=== PATIENT | female | born 1955 | race Caucasian/White ===

== ENCOUNTER → 2018-03-21 09:10 | Outpatient (CLI) | payer BC, SELFPAY ==
[2018-03-21 10:40] LABS: Anion Gap 7 (5-15); BUN 17 mg/dL (7-18); BUN/Creat Ratio 24.7 RATIO (10-20); Calcium,Total 9.1 mg/dL (8.5-10.1); Chloride 108 mmol/L (98-107); Cholesterol 213 mg/dL (200); Creatinine, Serum 0.69 mg/dL (0.55-1.02); EST Glomerular Filtration Rate 91 mL/min (>60); Est Glom Filt Rate - Afr Amer 111 mL/min (>60); Glucose 88 mg/dL (74-106); High Density Lipoprotein 68 mg/dL; Potassium 4.2 mmol/L (3.5-5.1); Sodium Level 141 mmol/L (136-145); Triglycerides 93 mg/dL; Very Low Density Lipoprotein 19 mg/dL (5-40)
[2018-03-22 08:24] LABS: Vitamin D,25 Hydroxy 21.5 ng/mL (29.95-100.01)
== END ==
PROVIDERS: Family Provider Family Medicine; PCP Family Medicine; Visit Provider Family Medicine
DX: Z00.00 Encounter for general adult medical examination without abnormal findings (principal)
CPT/HCPCS: 36415; 80048; 80061; 82306

== ENCOUNTER → 2018-05-28 08:17 | Outpatient (CLI) | payer BC, SELFPAY ==
[2018-05-31 13:33] LABS: HPV Reflexed? NOT INDICATED
== END ==
PROVIDERS: Family Provider Internal Medicine; PCP Family Medicine; Visit Provider Nurse Practitioner Adult Health
DX: Z01.419 Encounter for gynecological examination (general) (routine) without abnormal findings (principal)
CPT/HCPCS: 88175; G0145

== ENCOUNTER → 2018-05-28 09:15 | Outpatient (CLI) | payer BC, SELFPAY | PROVIDERS: Family Provider Internal Medicine; PCP Internal Medicine; Visit Provider Family Medicine | DX: Z00.00 Encounter for general adult medical examination without abnormal findings (principal); Z12.31 Encounter for screening mammogram for malignant neoplasm of breast | CPT/HCPCS: 77063; 77067; 77080 ==

== ENCOUNTER 2019-06-10 19:48 | Observation (INO) | payer BC, SELFPAY ==
[2019-06-10 19:48] VITALS: BP 158/87; PULSE 83; RESP 18; TEMP 36.5; O2SAT 96; BMI 37.5
--- NOTE | 2019-06-10 19:54 | ED.RN ---
CALLED FOR EKG PER RN REQUEST, PULLED OLD EKGS FOR
--- NOTE | 2019-06-10 20:19 | EKG12_ITS ---
Test Reason : CP Blood Pressure : / mmHG Vent. Rate : 074 BPM Atrial Rate : 074 BPM P-R Int : 174 ms QRS Dur : 088 ms QT Int : 418 ms P-R-T Axes : 048 -35 038 degrees QTc Int : 463 ms Normal sinus rhythm Left axis deviation Voltage criteria for left ventricular hypertrophy Abnormal ECG Confirmed by MARYCARMEN FRANCIS ([id number]), order editor VIVIANE GONSALES ([id number]) on 06/11/2019 1:36:22 PM Referred By: JOSE J Confirmed By:MARYCARMEN FRANCIS
--- NOTE | 2019-06-10 20:21 | ED.DCSUM_ITS ---
- ER Visit Summary Date of Service: 06/10/19 Chief Complaint: Near syncope History of Present Illness: The patient is a 63 F presenting after near syncopal episode. Patient states that she began to feel lightheaded and started sweating. She denied chest pain or chest pressure at the time. Denies shortnes s of breath. She states over the weekend she has been having intermittent episodes of chest pressure. She states she traveled to [place] last month. No other PE/DVT risk factors. She has a family history of her grandfather having AR age less than 65. She is not a smoker. Physical Examination: Vitals are stable. Patient is afebrile. Alert no acute distress. HEENT exam is unremarkable. Neck is supple. Lungs are clear and equal bilaterally. Heart is regular rate and rhythm. Abdomen is soft nontender nondistended. Extremities are unremarkable. Skin is warm and dry. No focal neurologic deficit. Remainder of exam is unremarkable. Emergency Department Course and Treatment: Patient was given aspirin on arrival. EKG is sinus rate of 74 with no acute ischemic changes. CBC, chemistries unremarkable. Troponin is negative. D-dimer negative. Chest x-ray shows no acute process. Patient remains pain-free in the emergency department. Discussed with the hospitalist for observation. Disposition: Observation Impression: Chest pain, near-syncope This note was generated with [employer] dictation software. It may contain incorrect words, spelling, and punctuation that were not noted in review of the chart prior to signing ED Disposition - Plan for ED Patient: Referrals: Burt Talavera MD [Primary Care Provider] -
--- NOTE | 2019-06-10 20:22 | RAD_ITS ---
STUDY: X-RAY CHEST REASON FOR EXAM: Female, 63 years old. Chest pain TECHNIQUE: Frontal view of the chest COMPARISON: None. FINDINGS: The lungs are clear. There are no pleural effusions. There is no pneumothorax. The heart is normal in size. The visualized osseous structures are within normal limits. RAD/Chest 1 View (Portable) IMPRESSION: No acute thoracic pathology. Electronically Signed: Matteo Bledsoe, at 20:43 EDT Tel , Service support ,
[2019-06-10] MEDS: Aspirin 81 MG TAB.CHEW 324 MG PO (20:24)
[2019-06-10 20:44] LABS: Anion Gap 6 (5-15); BUN 19 mg/dL (7-18); BUN/Creat Ratio 20.4 RATIO (10-20); Calcium,Total 9.3 mg/dL (8.5-10.1); Chloride 109 mmol/L (98-107); Creatinine, Serum 0.93 mg/dL (0.55-1.02); EST Glomerular Filtration Rate 64 mL/min (>60); Est Glom Filt Rate - Afr Amer 78 mL/min (>60); Estimated Creatinine Clearance 59.43 ml/min; Glucose 113 mg/dL (74-106); Potassium 3.7 mmol/L (3.5-5.1); Sodium Level 141 mmol/L (136-145)
[2019-06-10 21:06] LABS: Absolute Lymphocyte Count 2.75 X10^3/uL (0.83-4.51); Absolute Neutrophil Count 4.9 X10^3/uL (2.0-7.7); Basophil# 0.04 X10^3/uL; Basophil% 0.5 % (0-1); Eosinophil# 0.17 X10^3/uL; Hematocrit 38.5 % (37-47); Lymphocyte # 2.75 X10^3/ul (4.0); Lymphocyte % 32.5 % (19-41); Mean Corp Hgb Conc 33.8 g/dL (32-36); Mean Corpuscular Hgb 32.1 pg (27.0-32.0); Mean Corpuscular Volume 95.1 fL (81-99); Mean Platelet Vol. 10.5 fl (6.2-12.0); Monocyte# 0.64 X10^3/uL; Monocyte% 7.6 % (0-10); NRBC Flagged by Analyzer 0 % (0-5); Neutrophil # 4.86 X10^3/uL (2.7-7.7); Neutrophil % 57.3 % (47-70); Platelet Count 301 K/mm3 (150-450); RBC Distribution Width CV 13.5 % (11.6-14.6); RBC Distribution Width SD 47.1 fl (35.1-43.9); Red Blood Count 4.05 M/mm3 (4.2-5.4); White Blood Count 8.5 K/mm3 (4.4-11.0)
[2019-06-10 21:48] VITALS: BP 129/82; PULSE 70; RESP 16; O2SAT 95
[2019-06-10 23:00] VITALS: BP 125/94; PULSE 74; RESP 21; O2SAT 95
--- NOTE | 2019-06-10 23:18 | PCM.HP.STD ---
Problem List (1) Pre-syncope Status: Acute (2) Chest pain Status: Acute History of Present Illness Date of Admission: 06/10/19 Chief Complaint: NEAR SYNCOPE The patient is a 63 year old F who presented with a feeling of being about to pass out while sitting after eating at a restaurant. Patient had finished eating and was making plans to pay the bills. She felt nauseous while sitting. She felt lightheaded and his legs were weak. She was diaphoretic and she felt like passing out. She did not actually pass out. Also she reports that about 3 to 5 days ago she had chest pain. She described this chest pain as pressure. The chest pain was substernal and nonradiating. She has chest pain ongoing for many years. This chest pain is episodic. She does not think that her chest pain that re-occurred few days ago was different from her previous episodes of chest pain. She reported that she was evaluated more than 10 years ago with a stress test. She reports that she was told that the stress test showed that she has stress in her chest. She reported that her PCP, Dr. Talavera, noted that her blood pressure was elevated and her blood pressure is being watched. Family history includes only a paternal grandfather who had heart disease and had a heart attack at age 65. Past Medical History Medical History: Medical History (Last Updated 06/11/19 @ 00:06 by Donell Tena MD) Elevated blood pressure reading without diagnosis of hypertension R03.0 Allergies aspirin Adverse Reaction (Verified 06/10/19 19:50) Other SHAKES STILL TAKES IT IF NEEDED Home Medications: Ambulatory Orders Medication Instructions Recorded NK 06/10/19 Surgical History: cholecystectomy, - - Trigger finger surgery Lives: Alone Smoking Status: Never smoker Alcohol: Rare - *Family History Maternal History Items: Cancer - Breast cancer in multiple family members Paternal History Items: Cancer - Her father had prostate cancer. Also his paternal grandmother had cancer., Heart Disease - Her paternal grandfather had heart disease; and had a heart attack at age 65. Review of Systems Constitutional: Denies: Chills, Fever, Weight Change HEENT: Denies: Head Aches, Sinus Congestion, Sinus Drainage Cardiovascular: Reports: Chest Pressure. Denies: Palpitations Respiratory: Denies: Cough, Shortness of breath at rest, Sputum production Gastrointestinal: Reports: Nausea. Denies: Abdominal Pain, Vomiting Genitourinary: Denies: Dysuria Musculoskeletal: Denies: Joint Pain, Joint Tenderness Skin: Denies: Rash, Wounds Neurological: Denies: Numbness, Tingling, Focal weakness Psychiatric: Denies: Anxiety, Depression, Homicidal Ideations, Suicidal Ideations Hematologic/ Lymphatic: Denies: Easy Bruising, Easy Bleeding VTE Information - Inpt Only VTE Present on Admission: No VTE Mechan Device Prophylaxis: SCD's VTE Pharm Prophylaxis ordered?: No Patient Problems: Active and Suspected Problems (Last Updated 06/11/19 @ 00:06 by Donell Tena MD) Pre-syncope (Acute) Chest pain (Acute) - Physical Exam General: Alert, Oriented x3, Cooperative HEENT: Atraumatic, PERRLA, EOMI, Normocephalic Neck: Supple, No JVD, Negative Carotid Bruits Lungs: Clear to auscultation, Normal air movement Cardiovascular: Regular rate, No murmurs Abdomen: Bowel Sounds Present, Soft, Non Tender Extremities: No edema, Capillary Refill Less than 3 Seconds Skin: No rashes, No breakdown Musculoskeletal: No Tenderness to Palpation of Joints or Extremities Neurological: Cranial nerves II-XII grossly intact Psych/Mental Status: Normal Affect, Appropriate Vital Signs Temp Pulse Resp BP Pulse Ox 97.7 F L 74 21 H 125/94 H 95 06/10/19 19:48 06/10/19 23:00 06/10/19 23:00 06/10/19 23:00 06/10/19 23:00 Oxygen Flow Rate (L/min) 2 Oxygen Delivery Method Room Air Weight: 108.8 kg Body Mass Index (BMI) 37.5 Laboratory Tests Past 24 Hrs 06/10/19 06/10/19 06/10/19 20:00 20:00 20:00 WBC 8.5 RBC 4.05 L Hgb 13.0 Hct 38.5 MCV 95.1 MCH 32.1 H MCHC 33.8 RDW Std Deviation 47.1 H RDW Coeff of Misha 13.5 Plt Count 301 MPV 10.5 Immature Gran % (Auto) 0.100 Neut % (Auto) 57.3 Lymph % (Auto) 32.5 [place] % (Auto) 7.6 Eos % (Auto) 2.0 Baso % (Auto) 0.5 Absolute Neuts (auto) 4.9 Absolute Lymphs (auto) 2.75 Nucleated RBC % 0 D-Dimer Quant (PE/DVT) 0.30 Sodium 141 Potassium 3.7 Chloride 109 H Carbon Dioxide 26.0 Anion Gap 6 BUN 19 H Creatinine 0.93 Estim Creat Clear Calc 59.43 Est GFR (MDRD) Af Amer 78 Est GFR (MDRD) Non-Af 64 BUN/Creatinine Ratio 20.4 H Glucose 113 H Calcium 9.3 Troponin I < 0.015 Assessment/Plan All Active Problems (Last Updated 06/11/19 @ 00:06 by Donell Tena MD) Pre-syncope (Acute) Chest pain (Acute) The patient is a 63 year old F with a presyncopal episode and episodic chest pain ongoing for many years. Presyncopal episode Likely vasovagal. However, can not rule out cardiac origin of chest pain. We will get an echocardiogram. Orthostatic vitals ordered. EKG showed left axis deviation and sinus rhythm. Placed on telemetric monitoring. Chest pain Admit to a monitored bed on PCU CXR independently reviewed confirms no acute cardiopulmonary process. EKG independently reviewed confirms sinus rhythm with left axis deviation. Unchanged from previous. Aspirin 324 mg in the emergency department. Although patient has allergy to aspirin she takes aspirin if needed. Reportedly she shakes' with aspirin. ASA 81 mg p.o. daily SL NTG 0.4 mg prn as needed for chest pain We will check lipid panel. Serial cardiac enzymes Stat EKG as needed for chest pain Chemical Stress test in the AM if the cardiac enzymes are negative Echocardiogram ordered Elevated blood pressure without diagnosis of hypertension PRN hydralazine for systolic pressure more than 160 or diastolic pressure more than 120 Trend blood pressures. DVT prophylaxis SCD ordered for now. No chemical thromboprophylaxis because patient will be having stress test in a.m. If patient ends up staying for more than one day consider chemical thromboprophylaxis. Code Visit OBSV E&M: 26944 Initial observation care L3
[2019-06-11] VITALS (12 sets, daily range): BP systolic 105–156; BP diastolic 65–97; PULSE 51–73; RESP 16–18; TEMP 36.5–36.6; O2SAT 97–100; BMI 37.0; BMI 37.1
--- NOTE | 2019-06-11 00:13 | ECHOD_ITS ---
Reason For Study: Pre-syncope Procedure This was a 2D Doppler, Color Flow transthoracic echocardiogram. Exam performed in department. Left Ventricle Moderately dilated left ventricle. The estimated ejection fraction is 35-40 %. Stage 1 diastolic dysfunction. Mid-Anterior : Severely Hypokinetic. Mid-anteroseptal : Severely Hypokinetic. Anterior Rosser : Mildly hypokinetic. Right Ventricle Normal size and thickness. Normal systolic function. Atria Normal left atrium. Normal right atrium. Normal atrial septum. Mitral Valve The mitral valve is structurally normal. No prolapse or stenosis seen. Tricuspid Valve Normal tricuspid valve. Trivial tricuspid valve insufficiency. Unable to estimate RV systolic pressure/pulmonary artery pressure due to technically difficult study. Aortic Valve Trisinus/trileaflet aortic valve. Normal aortic valve. Pulmonic Valve Normal pulmonic valve. Great Vessels Normal aortic root. Normal arch. Normal inferior vena cava. Inferior vena cava collapse with sniff. Pericardium/Pleural No pericardial effusion. MMode/2D Measurements & Calculations LVIDd: 5.2 cm IVSd: 0.84 cm Ao root diam: 3.1 cm LVIDs: 4.4 cm LVPWd: 1.3 cm RVDd: 3.1 cm FS: 15.4 % LAV(MOD-bp): 51.6 ml EDV(MOD-sp4): 139.4 ml EDV(MOD-sp2): 105.6 ml LAV(MOD-bp) Indexed: 23.8 ml/m2 ESV(MOD-sp4): 73.8 ml EF(MOD-sp2): 50.1 % LAV(MOD-sp2): 42.3 ml EF(MOD-sp4): 47.1 % LAV(MOD-sp4): 64.9 ml SV(MOD-sp4): 65.6 ml SV(MOD-sp2): 52.9 ml LA A4 area: 20.0 cm2 LA dimension(2D): 4.3 cm RA A4 area: 15.6 cm2 Doppler Measurements & Calculations MV E max calos: 75.6 cm/sec Lat Peak E' Calos: 6.3 cm/sec Med Peak E' Calos: 6.7 cm/sec MV A max calos: 87.5 cm/sec E/E' lat: 12.1 E/E' med: 11.2 MV E/A: 0.86 Ao V2 max: 149.4 cm/sec LV V1 max: 118.8 cm/sec PA V2 max: 115.4 cm/sec Ao max P.9 mmHg LV V1 max P.6 mmHg Interpretation Summary Moderately dilated left ventricle. The estimated ejection fraction is 35-40 %. Stage 1 diastolic dysfunction. Mid-Anterior : Severely Hypokinetic. Mid-anteroseptal : Severely Hypokinetic. Anterior Rosser : Mildly hypokinetic Trivial tricuspid valve insufficiency. Unable to estimate RV systolic pressure/pulmonary artery pressure due to technically difficult study. There is no comparison study available. Ordering Physician: Donell Tena Referring Physician: Burt Talavera Performed By: Dixie Kenyon RDCS
--- NOTE | 2019-06-11 01:23 | EKG12_ITS ---
Test Reason : CP ADMISSION Blood Pressure : / mmHG Vent. Rate : 061 BPM Atrial Rate : 061 BPM P-R Int : 190 ms QRS Dur : 092 ms QT Int : 426 ms P-R-T Axes : 050 -33 -04 degrees QTc Int : 428 ms Normal sinus rhythm Left axis deviation ,LAHB Voltage criteria for left ventricular hypertrophy Abnormal ECG When compared with ECG of 10-JUN-2019 19:58, MANUAL COMPARISON REQUIRED, DATA IS UNCONFIRMED Confirmed by MARYCARMEN FRANCIS ([id number]), video effects editor VIVIANE GONSALES ([id number]) on 06/12/2019 2:05:49 PM Referred By: GRACE Confirmed By:MARYCARMEN FRANCIS
[2019-06-11 03:49] LABS: Cholesterol 195 mg/dL (200); High Density Lipoprotein 57 mg/dL; Triglycerides 100 mg/dL; Very Low Density Lipoprotein 20 mg/dL (5-40)
[2019-06-11] MEDS: Aspirin 81 MG TAB.CHEW PO (06:08)
[2019-06-11 08:55] LABS: Thyroid Stim Hormone (TSH) 3.49 uIU/mL (0.358-3.74)
--- NOTE | 2019-06-11 11:28 | DCINST_ITS ---
- Discharge Diagnoses Current Active Problems: Current Active and Chronic Problems (Last Updated 06/11/19 @ 00:06 by Donell Tena MD) Pre-syncope (Acute) Chest pain (Acute) You will use the following diet at home:: Regular Your food should be the consistency of: Regular Discharge Activity: Return to Normal Activity Weight Bearing Status: Full weight bearing Call your doctor if you observe: Fever of 101 or Higher, Shortness of breath, Dizziness, Fainting spells, Chest pain, Increased palpitations (irregular heartbeat), Uncontrolled pain Instructions: Taking Your Blood Pressure Additional Instructions: Please monitor your blood pressure in the next week, check it once or twice a day and record your heart rate as well and showed them to your primary doctor when you see him in a week. Allergies/Adverse Reactions: Allergies aspirin Adverse Reaction (Verified 06/10/19 19:50) Other SHAKES STILL TAKES IT IF NEEDED Medications to take at Discharge NK 06/10/19 Primary Care Physician: Burt Talavera MD [Primary Care Provider] - Please follow up with your Primary Care Physician in: 1 week. Test Results: Test results from this visit will be discussed in further detail at your follow- up appointment, if applicable.
--- NOTE | 2019-06-11 11:28 | CASEMGMT ---
As per the admitting RN, pt indicated has POA/LW forms and will bring them in. Pt indicated that Bong Short and Suzie Staples are her POAs. ANDREW Cruz
--- NOTE | 2019-06-11 12:32 | PCM.PROGNOTE ---
Patient Problems: Active and Suspected Problems (Last Updated 06/11/19 @ 00:06 by Donell Tena MD) Cardiomyopathy (Acute) Pre-syncope (Acute) Chest pain (Acute) Subjective: Chief complaint: Follow-up after admission for presyncope and reported chest pain. She was found to have low ejection fraction on 2D echocardiogram. Patient seen and examined. No acute events overnight. She denies any chest pain today. She denied dizziness or lightheadedness. She denied palpitation, syncope or presyncope. She denied nausea vomiting. She has been afebrile, heart rate has been bradycardic, blood pressure is slightly elevated, pulse ox is maintained on room air. - Physical Exam General: Alert, Oriented x3, Cooperative, No apparent distress HEENT: Atraumatic, PERRLA, EOMI, Normocephalic Oral: Moist Mucosa, No Gingival or Mucosal Lesions/ Ulcerations Neck: Supple, No JVD, Negative Carotid Bruits, Trachea Midline, Thyroid Normal Size and Texture Lungs: Clear to auscultation, Normal air movement, No rhonchi, No wheeze, No rales, Diminished Cardiovascular: Regular rate, Regular Rhythm, Normal S1, Normal S2, PMI Normal Abdomen: Bowel Sounds Present, Soft, Non Tender, Non-Distended, No Hepato-splenomegaly, Obese Extremities: No clubbing, No cyanosis, Edema - Trace nonpitting edema. Skin: No rashes, No breakdown Lymphatic: No Cervical, Supraclavicular, or Inguinal Adenopathy Neurological: Cranial nerves II-XII grossly intact, Motor Exam 5/5 strength throughout Psych/Mental Status: Normal Affect, Appropriate, Alert and oriented to time, place, person, mood and affect Vital Signs Temp Pulse Resp BP Pulse Ox 97.7 F L 62 18 151/84 H 98 06/11/19 06:00 06/11/19 09:21 06/11/19 06:00 06/11/19 06:00 06/11/19 06:00 Oxygen Flow Rate (L/min) 2 Oxygen Delivery Method Room Air Weight: 236 lb 15.951 oz Body Mass Index (BMI) 37.0 Orthostatic Vital Signs Start: 06/11/19 06:01 Freq: q24h Status: Active Protocol: Activity Type Activity Date Activity User E-Sign Co-Sign Detail Recorded Client Recorded Date Recorded By Document 06/11/19 06:00 BS [id number] 06/11/19 06:06 BS 06/11/19 06:00 Orthostatic Vitals Standing -Blood Pressure (90/60-120/80) 155/97 H -Extremity Use Right Arm -Pulse Rate (60-100) 69 Sitting -Blood Pressure (90/60-120/80) 155/89 H -Extremity Use Right Arm -Pulse Rate (60-100) 64 Lying -Blood Pressure (90/60-120/80) 151/84 H -Extremity Use Right Arm -Pulse Rate (60-100) 59 L Intake and Output for Last 24 Hours 06/09/19 06/10/19 06/11/19 23:59 23:59 23:59 Intake Total 400 / 400 Balance 400 / 400 Laboratory Tests Past 24 Hrs 06/10/19 06/10/19 06/10/19 20:00 20:00 20:00 WBC 8.5 RBC 4.05 L Hgb 13.0 Hct 38.5 MCV 95.1 MCH 32.1 H MCHC 33.8 RDW Std Deviation 47.1 H RDW Coeff of Misha 13.5 Plt Count 301 MPV 10.5 Immature Gran % (Auto) 0.100 Neut % (Auto) 57.3 Lymph % (Auto) 32.5 [place] % (Auto) 7.6 Eos % (Auto) 2.0 Baso % (Auto) 0.5 Absolute Neuts (auto) 4.9 Absolute Lymphs (auto) 2.75 Nucleated RBC % 0 D-Dimer Quant (PE/DVT) 0.30 Sodium 141 Potassium 3.7 Chloride 109 H Carbon Dioxide 26.0 Anion Gap 6 BUN 19 H Creatinine 0.93 Estim Creat Clear Calc 59.43 Est GFR (MDRD) Af Amer 78 Est GFR (MDRD) Non-Af 64 BUN/Creatinine Ratio 20.4 H Glucose 113 H Calcium 9.3 Troponin I < 0.015 Triglycerides Cholesterol LDL Cholesterol VLDL Cholesterol HDL Cholesterol TSH 06/11/19 06/11/19 06/11/19 00:25 03:11 03:11 WBC RBC Hgb Hct MCV MCH MCHC RDW Std Deviation RDW Coeff of Misha Plt Count MPV Immature Gran % (Auto) Neut % (Auto) Lymph % (Auto) [place] % (Auto) Eos % (Auto) Baso % (Auto) Absolute Neuts (auto) Absolute Lymphs (auto) Nucleated RBC % D-Dimer Quant (PE/DVT) Sodium Potassium Chloride Carbon Dioxide Anion Gap BUN Creatinine Estim Creat Clear Calc Est GFR (MDRD) Af Amer Est GFR (MDRD) Non-Af BUN/Creatinine Ratio Glucose Calcium Troponin I < 0.015 < 0.015 Triglycerides Cancelled 100 Cholesterol Cancelled 195 LDL Cholesterol Cancelled 118 VLDL Cholesterol Cancelled 20 HDL Cholesterol Cancelled 57 TSH 06/11/19 03:11 WBC RBC Hgb Hct MCV MCH MCHC RDW Std Deviation RDW Coeff of Misha Plt Count MPV Immature Gran % (Auto) Neut % (Auto) Lymph % (Auto) [place] % (Auto) Eos % (Auto) Baso % (Auto) Absolute Neuts (auto) Absolute Lymphs (auto) Nucleated RBC % D-Dimer Quant (PE/DVT) Sodium Potassium Chloride Carbon Dioxide Anion Gap BUN Creatinine Estim Creat Clear Calc Est GFR (MDRD) Af Amer Est GFR (MDRD) Non-Af BUN/Creatinine Ratio Glucose Calcium Troponin I Triglycerides Cholesterol LDL Cholesterol VLDL Cholesterol HDL Cholesterol TSH 3.49 Clinical Impression(s) from Imaging Studies Chest X-Ray 06/10/19 20:22 IMPRESSION: No acute thoracic pathology. Electronically Signed: Matteo Bledsoe, at 20:43 EDT Tel , Service support , Medical Necessity - Tobacco Use Smoking Status: Never smoker Assessment/Plan All Active Problems (Last Updated 06/11/19 @ 00:06 by Donell Tena MD) Cardiomyopathy (Acute) Pre-syncope (Acute) Chest pain (Acute) This is a 63 years old female patient presented to the emergency room because of presyncope, reported chest pain and she was found to have low ejection fraction consistent with cardiomyopathy of unclear etiology. #1 presyncope: Unclear etiology but can be explained by her low ejection fraction as well as bradycardia. Her EKG revealed normal sinus rhythm without evidence of acute ischemic changes. Troponin negative x3. Chest x-ray showed no acute findings. Lipid profile and TSH were unremarkable. D-dimer was negative. Her blood pressure has been on the higher side and she has been borderline bradycardic. 2D echocardiogram revealed moderately dilated left ventricle, ejection fraction of 35 to 40%, stage I diastolic dysfunction. Nuclear stress test is pending. Plan: Cardiology consult. #2 reported chest pain: EKG without acute ischemic changes. Troponin is negative. 2D echocardiogram reviewed as above. Stress test is pending. Plan as above. #3 cardiomyopathy: Unclear etiology, could be ischemic. 2D echocardiogram revealed severely hypokinetic mid anterior wall, severely hypokinetic mid anteroseptal wall and mildly hypokinetic apex. Ejection fraction is 35 to 40%. Plan: Cardiology consult, start lisinopril and HCTZ. She is borderline bradycardic and she might not tolerate beta-blockers. #4 elevated blood pressure: Patient has been in the range of 150s. Patient mentioned that over the last year, her blood pressure has been borderline high. Plan to start lisinopril and HCTZ as above. #5 DVT prophylaxis: Subcu Lovenox. This note was generated with [employer] dictation software. It may contain incorrect words, spelling, and punctuation that were not noted in checking the note before signing. Code Visit Inpatient E&M: [id number] [facility] Hosp L3
--- NOTE | 2019-06-11 12:43 | STRESSREP_ITS ---
Stress Test Report Date: 06/11/2019 Procedure: Exercise tolerance test/imaging study Indications: Chest pain Consent: Per the patient Procedure: The patient exercised on a Myron protocol for 5 minutes and 31 seconds achieving a peak heart rate of 153 bpm (98% predicted maximal heart rate) with a peak blood pressure 204/88 mmHg and a peak MET capacity of 7 METs. The baseline ECG demonstrated normal sinus rhythm, poor R wave progression in the anterior leads. The peak exercise ECG demonstrated tachycardia with short runs of nonsustained V. tach. EKG during recovery revealed no significant ST changes. Patient had short (3-5 beat) runs of nonsustained V. tach during peak exercise. The functional capacity was considered low average for age. There was [no complaint of chest discomfort during exercise or recovery]. The examination was discontinued secondary to fatigue. Impression: 1. Technically adequate (percent predicted maximal heart rate greater than 85%) exercise tolerance test 2. Stress test is negative for exercise-induced EKG changes of ischemia. However, patient did have short runs of nonsustained V. tach during peak exercise 3. The test test is [negative] for exercise-induced chest pain 4. Functional capacity is below average for age 5. Nuclear images pending Myocardial perfusion imaging study: Technique: The patient was injected with 11.9 mCi of technetium 99m Cardiolite and subsequently rest SPECT Cardiolite nuclear imaging was obtained in the horizontal long, vertical long, and short axis views. The patient exercised on a Myron protocol. Please see above for details. The patient was injected with 34.1 mCi of technetium 99m Cardiolite and subsequently stress SPECT Cardiolite nuclear imaging was obtained in the horizontal long, vertical long, and short axis views. A gated Cardiolite study at peak stress was obtained. Interpretation: Rest and stress SPECT Cardiolite nuclear imaging status post realignment, normalization, and attenuation correction, demonstrates overall normal myocardial radioisotope uptake. The gated Cardiolite study demonstrates mild global hypokinesis. The reported LVEF is 47 %. Impression: 1. There is no evidence of significant ischemia or infarction. 2. The gated Cardiolite study reports an LVEF of [47]% with mild global hypokinesis. This note was generated with [employer] software. It may contain incorrect words, spelling, and punctuation that were not noted in checking the note before signing.
--- NOTE | 2019-06-11 13:06 | PCM.CONS.C ---
Problem List (1) Cardiomyopathy Status: Acute (2) Pre-syncope Status: Acute (3) Chest pain Status: Acute Reason for Consult Date of Consultation: 06/11/19 Reason for Consultation: Chest pressure, dizziness, presyncope, abnormal echocardiogram, abnormal stress test History of Present Illness: The patient is a 63 year old F, mildly obese, nondiabetic, with a history of hypertension, unknown cholesterol, no previous known coronary artery disease, catheterization, TIA or CVA. The patient was in normal health up until last evening when she went out to eat with her friend. At the conclusion of the meal the patient felt overly full, and as she was checking out she developed significant leg weakness, lightheadedness, and severe diaphoresis. Her symptoms abated after several minutes, drove herself home and felt better. She had no associated chest pain or chest pressure or shortness of breath. However, over the last several weeks the patient has had substernal chest pressure on and off at rest as well as significant dyspnea on exertion with inclines which is a new finding. After consultation with her family she was encouraged to come to the emergency room and be evaluated. Her EKG demonstrated sinus bradycardia with poor R wave progression across the precordium, no acute changes. Her initial troponin was negative. Chest x-ray was negative for pulmonary edema or pleural effusions. She underwent a 2D echo with Doppler which demonstrated moderate to severe anterior apical hypokinesis with an overall ejection fraction of around 85 to 40%. We were unable to quantitate her RVSP. In addition she underwent a ambulatory nuclear stress test today which she had a hypertensive blood pressure response to exercise, good chronotropic competence, no anginal symptoms, no overt ischemia noted however she did have several episodes of nonsustained ventricular tachycardia of 3-5 beats. Past Medical History Allergies/Adverse Reactions: Allergies aspirin Adverse Reaction (Verified 06/10/19 19:50) Other SHAKES STILL TAKES IT IF NEEDED Home Medications: Ambulatory Orders Medication Instructions Recorded NK 06/10/19 Surgical History: cholecystectomy, - - Trigger finger surgery - *Family History Maternal History Items: Cancer - Breast cancer in multiple family members Paternal History Items: Cancer - Her father had prostate cancer. Also his paternal grandmother had cancer., Heart Disease - Her paternal grandfather had heart disease; and had a heart attack at age 65. Lives: Alone Smoking Status: Never smoker Alcohol: Rare Review of Systems - Review of Systems General: Denies: Fever, Night Sweats, Fatigue Cardiovascular: Reports: Chest Discomfort at Rest, Peripheral Edema, Palpitations, Lightheadedness. Denies: Chest Discomfort, Shortness of Breath, Orthopnea, PND, Dizziness, Near Syncope, Syncope Respiratory: Denies: Cough, Sputum Production, Hemoptysis Gastrointestinal: Denies: Hematemesis, Hematochezia, Melena Genitourinary: Denies: Dysuria, Hematuria Skin: Denies: Rash Subjectve: Patient lying in bed, no acute distress. Objective: Vital Signs Temp Pulse Resp BP Pulse Ox 97.9 F 51 L 18 156/87 H 100 06/11/19 12:00 06/11/19 12:00 06/11/19 12:00 06/11/19 12:00 06/11/19 12:00 Oxygen Flow Rate (L/min) 2 Oxygen Delivery Method Room Air Weight: 236 lb 15.951 oz Body Mass Index (BMI) 37.0 Orthostatic Vital Signs Start: 06/11/19 06:01 Freq: q24h Status: Active Protocol: Activity Type Activity Date Activity User E-Sign Co-Sign Detail Recorded Client Recorded Date Recorded By Document 06/11/19 06:00 BS [id number] 06/11/19 06:06 BS 06/11/19 06:00 Orthostatic Vitals Standing -Blood Pressure (90/60-120/80 mm Hg) 155/97 H -Extremity Use Right Arm -Pulse Rate (60-100 beats/min) 69 Sitting -Blood Pressure (90/60-120/80 mm Hg) 155/89 H -Extremity Use Right Arm -Pulse Rate (60-100 beats/min) 64 Lying -Blood Pressure (90/60-120/80 mm Hg) 151/84 H -Extremity Use Right Arm -Pulse Rate (60-100 beats/min) 59 L Intake and Output for Last 24 Hours 06/09/19 06/10/19 06/11/19 23:59 23:59 23:59 Intake Total 400 / 400 Balance 400 / 400 General: Awake, Alert, Oriented x 3 HEENT: PERRL, EOMI, Sclera Non Icteric Neck: Supple, Good ROM, No Lymph Node Enlargement Lungs: Clear to auscultation Cardiovascular: Regular Rhythm, Normal S1, Normal S2, No Murmurs, No Rubs, No Gallops Vascular: No Carotid Bruits, Normal Femoral Pulses, Normal Radial Pulses, Normal Dorsalis Pedal Pulse, Normal Posterior Tibial Pulses Abdomen: Bowel Sounds Present, Soft, Non Tender, No HSM, No Organomegaly Extremities: No Cyanosis, No Clubbing, No edema, Bilateral Edema +1 Neurological: No Focal Motor or Sensory Deficit 06/10/19 20:00: WBC 8.5, RBC 4.05 L, Hgb 13.0, Hct 38.5, MCV 95.1, MCH 32.1 H, MCHC 33.8, Plt Count 301, MPV 10.5, Immature Gran % (Auto) 0.100, Neut % (Auto) 57.3, Lymph % (Auto) 32.5, [place] % (Auto) 7.6, Eos % (Auto) 2.0, Baso % (Auto) 0.5, Absolute Neuts (auto) 4.9, Nucleated RBC % 0 06/10/19 20:00: D-Dimer Quant (PE/DVT) 0.30 06/10/19 20:00: Sodium 141, Potassium 3.7, Chloride 109 H, Carbon Dioxide 26.0, Anion Gap 6, BUN 19 H, Creatinine 0.93, Est GFR (MDRD) Af Amer 78, Est GFR (MDRD) Non-Af 64, BUN/Creatinine Ratio 20.4 H, Glucose 113 H, Calcium 9.3, Troponin I < 0.015 06/11/19 00:25: Troponin I < 0.015 06/11/19 03:11: Triglycerides Cancelled, Cholesterol Cancelled, LDL Cholesterol Cancelled, VLDL Cholesterol Cancelled, HDL Cholesterol Cancelled 06/11/19 03:11: Troponin I < 0.015, Triglycerides 100, Cholesterol 195, LDL Cholesterol 118, VLDL Cholesterol 20, HDL Cholesterol 57 Rhythm: EKG: As above ECHO: As above Stress Test: As above Cardiac Cath: Pending PCI: CT Surgery: Holter monitor: EPS: PPM: CXR: Chest CT Scan: Assessment/Plan 1. LV dysfunction: The patient was found to have newly discovered significant LV dysfunction with anterior apical hypokinesis which apparently is new to the patient. This superimposed upon substernal chest pressure, lightheadedness, dizziness, and diaphoresis, combined with her ventricular tachycardia at peak exercise makes me suspicious the patient may have undiagnosed coronary occlusive disease and possible arrhythmia which may be inducing her lightheadedness and dizziness, specifically ventricular tachycardia. I recommended the patient undergo a left heart catheterization and to that end I recommend loading her with Plavix 300 mg x 1 now followed by 75 mg daily and baby aspirin 81 mg a day. The risks/benefits of the catheterization procedure were thoroughly explained the patient, including specific attention to lack of on-site surgical back-up, and informed consent was obtained. In addition I recommend continuing her lisinopril 20 mg p.o. daily, starting her on Coreg 3.125 mill grams p.o. twice daily and titrating up from there. In addition she has some mild ankle edema, as well as mild pulmonary hypertension by echocardiogram. Recommend starting her on hydrochlorothiazide 12.5 mg p.o. daily. If the patient's coronary arteries show no significant occlusive disease, we will discontinue her Plavix and continue to treat her with medicines such as baby aspirin, beta-blockers, YOU inhibitors and diuretic therapy. If after cardiac rehab her LV function does not improve, she may require EP evaluation for possible prophylactic AICD. 2. Hyperlipidemia: Her LDL and HDL cholesterol are fairly well controlled. We will add statin based medication depending on the outcome of her catheterization. 3. Thank you very much for the opportunity to participate in the cardiac care of your patient. Discussed with Dr. Greene. Consultation time took place between 12 PM and 12:30 PM. Code Visit Inpatient E&M: 54814 Init Hosp L2
--- NOTE | 2019-06-11 14:03 | CASEMGMT ---
According to the [place] website, the following are in-network tertiary facilities: [facility], [facility], [facility], [facility], [facility], [facility], [facility], [facility], [facility], and . Karlos LOPEZ CM
[2019-06-11] MEDS: Lisinopril 20 MG Tablet PO (14:14)
[2019-06-11] MEDS: Clopidogrel Bisulfate 300 MG Tablet PO (14:14)
[2019-06-11] MEDS: hydroCHLOROthiazide 12.5mg 12.5 MG PO (14:56)
[2019-06-11] MEDS: Carvedilol 3.125 MG TABLET PO (17:06)
[2019-06-11] MEDS: 0.9% NaCl Peripheral Flush Adult/Peds IV (21:57)
[2019-06-12] VITALS (18 sets, daily range): BP systolic 97–136; BP diastolic 57–84; PULSE 53–78; RESP 14–18; TEMP 36.4–36.6; O2SAT 94–100
[2019-06-12] MEDS: Carvedilol 3.125 MG TABLET PO (06:20)
[2019-06-12] MEDS: Aspirin 81 MG TAB.CHEW PO (06:20)
[2019-06-12] MEDS: Clopidogrel Bisulfate 75 MG Tablet PO (06:20)
[2019-06-12] MEDS: Lisinopril 20 MG Tablet PO (06:20)
[2019-06-12] MEDS: 0.9% NaCl Peripheral Flush Adult/Peds IV (06:21)
--- NOTE | 2019-06-12 06:43 | NURSING ---
Report called to [employer]; Report given to Tasia LOPEZ
[2019-06-12] MEDS: 0.9% Normal Saline 1,000 ML 15 ML IV (07:50)
--- NOTE | 2019-06-12 08:32 | CL.D_ITS ---
Patient Name: SERENE LANGE Study Date: 06/12/2019 Performing: Gavino Yepez MD Ht: 66.92 inches 170 cm : 1955 Wt: 238.1 lbs 108 kg Age: 63 Gender: female BSA: 2.18 PROCEDURE(S) PERFORMED [id number]/LV CLINICAL PROFILE AND INDICATIONS Indications: New Onset Angina <= 2 months, Suspected CAD, Cardiac Arrythmia, LV Dysfunction Heart Failure: NYHA Class: 1, Newly Diagnosed: Yes, Heart Failure Type: Systolic Stress/Imaging Date: 06/11/2019Stress Test with SPECT MPI: Negative Angina Classification Anginal Classification w/in 2 Weeks: CCS IV CAD Presentations: Symptom unlikely to be ischemic. Comorbidities/Risk Factors: Hypertension Dyslipidemia CONCLUSIONS Normal LV size, wall motion,and systolic function Perserved Left Ventricular systolic function with normal EDP LVEF: by LV gram 60 % RECOMMENDATIONS Management as per referring [employer] D/c asa and plavix; start lipitor. Pt has intact LV function despite echo images suggesting LV dysfunction. Manual sheath removal. DESCRIPTION OF PROCEDURE The patient arrived to the procedure lab. The risks and benefits of the procedure as well as a full d escription of our services here and current unavailability of surgical backup were fully explained to the patient and/or their significant other prior to the catheterization. The Timeout was completed, verifying the correct patient and procedure. The patient's procedural site was prepped and draped in the usual fashion. Local anesthetic was given subcutaneously to right groin region with Lidocaine 2%. Using a modified Seldinger technique, arterial access was obtained via the right femoral artery, a 4 Fr sheath was inserted Left Coronary Artery selective angiography was performed in multiple views us ing a 4 Fr. JL5 catheter. Right Coronary Artery selective angiography was then performed in multiple views using a 4 Fr. 3DRC catheter. Left Ventriculography was performed in HASSAN projection using a 4 Fr . Pigtail catheter. LV to AO pullback pressures were then recorded.The arterial sheath was pulled and manual compression applied until hemostasis is achieved. CORONARY ANGIOGRAPHY DOMINANCE: Left Dominant LEFT HEART ASSESSMENT Left Ventricular Ejection Fraction: by LV Gram 60 % Normal LV wall motion Normal Left Ventricular systolic function LVEDP: 3 mmHg Normal Left Ventricular End Diastolic Pressure LEFT MAIN: Non-obstructive LEFT ANTERIOR DESCENDING ARTERY: Angiographically normal DIAGONAL 1: Proximal - Angiographically normal CIRCUMFLEX ARTERY: Angiographically normal OM 1: Proximal - Angiographically normal RIGHT CORONARY ARTERY: Angiographically normal COMPLICATIONS No Complications PROCEDURE MEDICATIONS Versed 1 mg IV Oxygen: 2 L/min via nasal cannula Benadryl 50 mg PO @ 06/12/2019 07:56:50 SUMMARY OF HEMODYNAMIC DATA Time AIR REST ECG 07:52:09 AO 132/69 (90) SA 08:10:54 LV 141/-16, 5 08:17:13 LV 140/-18, 3 08:17:19 LVp 138/-18, 5 08:17:39 AOp 140/66 (93) 08:17:44 Signed By Gavino Yepez MD On 06/12/2019 8:31:49 AM Gavino Yepez MD
--- NOTE | 2019-06-12 09:01 | DCINST_ITS ---
- Discharge Diagnoses Current Active Problems: Current Active and Chronic Problems (Last Updated 06/11/19 @ 00:06 by Donell Tena MD) Cardiomyopathy (Acute) Pre-syncope (Acute) Chest pain (Acute) You will use the following diet at home:: Cardiac Your food should be the consistency of: Regular Discharge Activity: Return to Normal Activity Weight Bearing Status: Full weight bearing Call your doctor if you observe: Fever of 101 or Higher, Shortness of breath, Dizziness, Fainting spells, Swelling in the ankles, Chest pain, Increased palpitations (irregular heartbeat), Uncontrolled pain Instructions: Taking Your Blood Pressure, Controlling High Blood Pressure, Low- Salt Choices Allergies/Adverse Reactions: Allergies aspirin Adverse Reaction (Verified 06/10/19 19:50) Other SHAKES STILL TAKES IT IF NEEDED Medications to take at Discharge Atorvastatin Calcium [Lipitor] 20 mg PO QHS #90 tab 06/12/19 Carvedilol [Coreg (Beta Michael)] 3.125 mg PO BIDCM #90 tab 06/12/19 Lisinopril/Hydrochlorothiazide [Lisinopril-Hctz 10-12.5 mg Tab] 1 ea PO DAILY #90 tab 06/12/19 The following prescriptions were given: Carvedilol [Coreg (Beta Michael)] 3.125 mg PO BIDCM #90 tab Transmission Status: Pending to [address] Atorvastatin Calcium [Lipitor] 20 mg PO QHS #90 tab Transmission [facility]: [facility] Lisinopril/Hydrochlorothiazide [Lisinopril-Hctz 10-12.5 mg Tab] 1 ea PO DAILY #90 tab Transmission Status: Pending to [address] Primary Care Physician: Burt Talavera MD [Primary Care Provider] - Please follow up with your Primary Care Physician in: 1 week. Test Results: Test results from this visit will be discussed in further detail at your follow- up appointment, if applicable. Please Follow Up With: Gavino Yepez MD When: 4-6 weeks.
--- NOTE | 2019-06-12 09:52 | CASEMGMT ---
JOHN CARRERA assessment: Face to Face with patient for initial transition planning/care coordination assessment. JOHN CARRERA introduced self and role at [facility], pt voices understanding and consents to assessment at this time. Pt is lying in bed s/p heart cath on bedrest in no distress at this time. Pt is A/Ox4 at this time and answers all questions appropriately at this time. Care providers, pharmacy, and demographics verified at this time. PCP: Ilan Specialists: [facility] [employer] Preferred Pharmacy: [facility] Insurance: [employer] Prescription Benefit: [employer] Living Will/HPOA: Pt states has LW/HPOA and is aware that they are not currently on file at [facility] at this time. Pt encouraged to bring paperwork in when able, voices understanding. Pt states that her son, Bong Short, is HPOA. LNOK: Bong Short, mae Living Arrangements: Pt states lives with her 2 cats in a 1 story home and states no concerns at home at this time. Pt states is independent with ADL's. Transportation: Pt states drives self and states no transportation concerns at this time. DME/HHC: Pt states has grab bars but does not currently have them installed. Pt states no need for any further DME at this time. Pt states no hx of HHC or SNF in the past. Pt states no concerns with going home at time of discharge. 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 Pt states does not smoke or drink ETOH. Pt states no further concerns/needs at this time. CM to follow for any further discharge planning/needs. Advised pt to ask for CM if any further questions/concerns/needs arise, voices understanding. Pt Goal: Home Plan: [place] JOHN CARRERA
--- NOTE | 2019-06-12 10:31 | DS.PCM_ITS ---
Discharge Date and Diagnosis - Problem List Patient Problems: Active and Suspected Problems (Last Updated 06/11/19 @ 00:06 by Donell Tena MD) Cardiomyopathy (Acute) Pre-syncope (Acute) Chest pain (Acute) Date of Admission: 06/10/19 Date of Discharge: 06/12/19 - Primary Discharge Diagnosis Active and Suspected Problems (Last Updated 06/11/19 @ 00:06 by Donell Tena MD) #1 presyncope, unclear etiology but could be due to bradycardia. #2 elevated blood pressure. #3 cardiomyopathy, ruled out. - Secondary Discharge Diagnosis Chronic Problems (Last Updated 06/12/19 @ 10:27 by Alley Harp) History of left heart catheterization (Chronic 06/12/19) Normal LV size, wall motion,and systolic function; Perserved Left Ventricular systolic function with normal EDP; LVEF: by LV gram 60 % [facility] per [facility] Hospital Course and Treatment Imaging Results: Clinical Impression(s) from Imaging Studies Chest X-Ray 06/10/19 20:22 IMPRESSION: No acute thoracic pathology. Electronically Signed: Matteo Bledsoe, at 20:43 EDT Tel , Service support , Dr. Yepez, cardiology. Procedures: 2-D Echocardiogram, Cardiac catheterization, EKG, Stress test Summary of Care Provided: Patient seen and examined on the day of discharge and appeared to be stable to discharge home. She denies any more dizzy spells, no chest pain or shortness of breath. Blood pressure stabilized, heart rate has been in the high 50s to 60s, other vital signs are stable. The patient is a 63 year old F admitted because of presyncope and questionable chest pain for evaluation. Her EKG revealed normal sinus rhythm without evidence of acute ischemic changes or cardiac arrhythmias. During this hospital stay, heart rate has been in the range of high 50s to 60s. Her troponin was negative x3. Chest x-ray showed no acute findings. Lipid profile and TSH were unremarkable. Her d-dimer was negative. Her blood pressure has been in the range of 150 and according to the patient, her blood pressure has been borderline high over the last year but she is not on any medication for it. 2D echocardiogram revealed moderately dilated left ventricle with ejection fraction of 35 to 40% and stage I diastolic dysfunction. She underwent nuclear stress test that showed no evidence of stress-induced myocardial ischemia or infarction with ejection fraction 47% with mild global hypokinesis. Cardiology consulted and patient underwent cardiac catheterization. Cardiac catheterization revealed angiographically normal LAD, left circumflex, RCA, nonobstructive left main coronary artery and ejection fraction was 60% on cardiac catheterization. There was no evidence of acute CHF. Cardiomyopathy ruled out. Her findings on the echocardiogram and stress test could be due to chronic elevation of her blood pressure. Patient was started on statins, HCTZ, lisinopril and Coreg. Her routine blood work was unremarkable. Patient discharged home in a stable medical condition, discharged on Lipitor, Coreg, lisinopril and HCTZ, recommende d to check blood pressure at least twice daily and follow-up with PCP in 1 week as well as follow-up with cardiology in 4 to 6 weeks. Patient Problems: Active and Suspected Problems (Last Updated 06/11/19 @ 00:06 by Donell Tena MD) Cardiomyopathy (Acute) Pre-syncope (Acute) Chest pain (Acute) - Physical Exam General: Alert, Oriented x3, Cooperative, No apparent distress HEENT: Atraumatic, PERRLA, EOMI, Normocephalic Oral: Moist Mucosa, No Gingival or Mucosal Lesions/ Ulcerations Neck: Supple, No JVD, Negative Carotid Bruits, Trachea Midline, Thyroid Normal Size and Texture Lungs: Clear to auscultation, Normal air movement, No rhonchi, No wheeze, No rales Cardiovascular: Regular rate, Regular Rhythm, Normal S1, Normal S2, No murmurs Abdomen: Bowel Sounds Present, Soft, Non Tender, Non-Distended, No Hepato- splenomegaly Extremities: No clubbing, No cyanosis, No edema Skin: No rashes, No breakdown Lymphatic: No Cervical, Supraclavicular, or Inguinal Adenopathy Neurological: Cranial nerves II-XII grossly intact, Neuro grossly intact Psych/Mental Status: Normal Affect, Appropriate Vital Signs Temp Pulse Resp BP Pulse Ox 97.8 F 63 16 136/65 H 97 06/12/19 06:17 06/12/19 10:20 06/12/19 10:20 06/12/19 10:20 06/12/19 10:20 Oxygen Flow Rate (L/min) 2 Oxygen Delivery Method Room Air Weight: 236 lb 15.951 oz Body Mass Index (BMI) 37.0 Intake and Output for Last 24 Hours 06/10/19 06/11/19 06/12/19 23:59 23:59 23:59 Intake Total 1020 / 1020 18.5 / 18.5 Balance 1020 / 1020 18.5 / 18.5 Discharge Activity: Return to Normal Activity Weight Bearing Status: Full weight bearing Call your doctor if you observe: Fever of 101 or Higher, Shortness of breath, Dizziness, Fainting spells, Swelling in the ankles, Chest pain, Increased palpitations (irregular heartbeat), Uncontrolled pain Home Medications: Medications to take at Discharge Atorvastatin Calcium [Lipitor] 20 mg PO QHS #90 tab 06/12/19 Carvedilol [Coreg (Beta Michael)] 3.125 mg PO BIDCM #90 tab 06/12/19 Lisinopril/Hydrochlorothiazide [Lisinopril-Hctz 10-12.5 mg Tab] 1 ea PO DAILY #90 tab 06/12/19 Following Prescrptions Were Given to Patient: Carvedilol [Coreg (Beta Michael)] 3.125 mg PO BIDCM #90 tab Transmission Status: Received by [facility] Atorvastatin Calcium [Lipitor] 20 mg PO QHS #90 tab Transmission Status: [facility] Lisinopril/Hydrochlorothiazide [Lisinopril-Hctz 10-12.5 mg Tab] 1 ea PO DAILY #90 tab [facility] Status[facility] [place] [address] Primary Care Physician: Burt Talavera MD [Primary Care Provider] - Please follow up with your Primary Care Physician in: 1 week. Please Follow Up With: Gavino Yepez MD When: 4-6 weeks. Patient Instructions: Controlling High Blood Pressure, Low-Salt Choices, Taking Your Blood Pressure Disposition: Home Minutes spent on discharge:: 28 Patient Condition:: Stable Medical Necessity - Tobacco Use Smoking Status: Never smoker Meaningful Use Info Meaningful Use Diagnoses (Choose all that apply): None applicable Code Visit OBSV E&M: 28525 Observation care discharge
[2019-06-12] MEDS: hydroCHLOROthiazide 12.5mg 12.5 MG PO (11:33)
--- NOTE | 2019-06-12 14:20 | NURSING ---
This RN began discharging patient well after patient bedrest was up and patient had been ambulating and changed out of gown into her personal clothes. Right after this RN finished giving DC instructions the patient began to c/o being diaphoretic and mild lightheadedness. This RN began to take a set of Vital Signs and went to obtain a glucometer and upon return to patient she states she already felt better and that the episode of had passed. Her BP was 105/71 HR 78. Her blood glucose was 102. The patient insisted that she felt fine and this was the same type of episode that brought her in her and is satisfied that all of her testing has been negative. This RN explained to her that maybe in would be conklin to stay here for a bit to keep an eye of her. She insisted again that she was okay to be discharged and that she wants to leave. This RN encouraged her to follow up with her PCP if these symptoms persist. This RN wheeled her in a wheelchair down to her families vehicle. She continued to deny any symptoms and didn't show any symptoms.
[2019-06-12 16:25] LABS: Bedside Glucose 102 mg/dL (70-110)
== END 2019-06-12 09:02 | disposition home or self-care (01) ==
LOC: ED 20:04 → PCU 06-11 01:28
PROVIDERS: Admitting Provider Hospitalist; Emergency Provider Emergency Medicine; Family Provider Family Medicine; PCP Family Medicine; Visit Provider Hospitalist
DX: R55 Syncope and collapse (principal); I42.9 Cardiomyopathy, unspecified; R07.89 Other chest pain; I10 Essential (primary) hypertension; R94.39 Abnormal result of other cardiovascular function study; E66.01 Morbid (severe) obesity due to excess calories; Z68.37 Body mass index [BMI] 37.0-37.9, adult; Z71.3 Dietary counseling and surveillance; I07.1 Rheumatic tricuspid insufficiency; R94.31 Abnormal electrocardiogram [ECG] [EKG]; E78.5 Hyperlipidemia, unspecified
CPT/HCPCS: 36415; 71045; 78452; 80048; 80061; 82962; 84443; 84484; 85025; 85379; 93005; 93017; 93306; 93458; 99152; 99218; 99285; A9500; J7030; Q9967; A4216; C1769; C1894; G0378

== ENCOUNTER → 2019-07-01 06:56 | Outpatient (CLI) | payer BC, SELFPAY ==
[2019-06-11 00:15] VITALS: BMI 37.0
--- NOTE | 2019-07-01 06:59 | BI_ITS ---
MAMMOGRAPHY - BILATERAL SCREENING REASON FOR EXAM: Female, 63 years old. Routine annual screening examination. PERTINENT HISTORY: Sister with breast cancer. Mother with breast cancer. Aunt with breast cancer. TECHNIQUE: Digital bilateral breast jerry (3D mammographic acquisition) in the CC and MLO projections. 2-D mediolateral oblique (MLO) and craniocaudad (CC) views of both breasts were obtained. CAD: Full Field Digital Mammography with Computer Added Detection was performed. COMPARISON: Comparison is made with prior examination July 28, 2018. FINDINGS: Breast Composition: There are scattered areas of fibroglandular density. There are no dominant masses or suspicious calcifications. No other significant abnormalities are identified. There has been no significant change since the prior study. BI/SCREEN MAMM (CAD) W/JERRY BILAT IMPRESSION: Stable bilateral screening mammogram. Yearly follow-up mammogram recommended. (A) ASSESSMENT CATEGORY: BIRADS Category 1: Negative. A letter regarding these results will be sent to the patient by the facility within 30 days. Approximately 10% of breast cancers are not detected by mammography. A normal mammogram should not delay biopsy of a clinically suspicious abnormality. [id number] Electronically Signed: Haim Hawk, at 8:39 EDT , Service support ,
== END ==
PROVIDERS: Family Provider Family Medicine; PCP Family Medicine; Referring Provider Family Medicine; Visit Provider Family Medicine
DX: Z12.31 Encounter for screening mammogram for malignant neoplasm of breast (principal)
CPT/HCPCS: 77063; 77067

== ENCOUNTER → 2019-07-19 07:50 | Outpatient (CLI) | payer OTHER, SELFPAY ==
[2019-07-18 11:44] VITALS: BMI 37.0
[2019-07-19 08:33] LABS: AST(SGOT) 20 U/L (15-37); Alanine Aminotransfer ALT/SGPT 20 U/L (13-56); Albumin, Serum 3.8 g/dL (3.2-5.0); Alkaline Phosphatase 77 U/L (45-117); Bilirubin, Direct 0.22 mg/dL (0.00-0.30); Cholesterol 138 mg/dL (200); Globulin 3.6 g/dL (2.2-4.2); High Density Lipoprotein 64 mg/dL; Protein, Total 7.4 g/dL (6.4-8.2); Triglycerides 60 mg/dL; Very Low Density Lipoprotein 12 mg/dL (5-40)
== END ==
PROVIDERS: Family Provider Family Medicine; PCP Family Medicine; Referring Provider Internal Medicine Cardiovascular Disease; Visit Provider Internal Medicine Cardiovascular Disease
DX: Z13.220 Encounter for screening for lipoid disorders (principal)
CPT/HCPCS: 36415; 80061; 80076

== ENCOUNTER → 2019-09-20 08:00 | Outpatient (CLI) | payer OTHER, SELFPAY ==
[2019-07-18 11:44] VITALS: BMI 37.0
[2019-09-20 09:01] LABS: Anion Gap 4 (5-15); BUN 18 mg/dL (7-18); Calcium,Total 8.8 mg/dL (8.5-10.1); Chloride 109 mmol/L (98-107); Creatinine, Serum 0.78 mg/dL (0.55-1.02); EST Glomerular Filtration Rate 79 mL/min (>60); Est Glom Filt Rate - Afr Amer 95 mL/min (>60); Glucose 95 mg/dL (74-106); Potassium 4.1 mmol/L (3.5-5.1); Sodium Level 141 mmol/L (136-145)
== END ==
PROVIDERS: Family Provider Family Medicine; PCP Family Medicine; Referring Provider Family Medicine; Visit Provider Family Medicine
DX: I10 Essential (primary) hypertension (principal)
CPT/HCPCS: 36415; 80048

== ENCOUNTER → 2020-03-17 10:24 | Outpatient (CLI) | payer MEDICARE, OTHER, SELFPAY ==
[2019-07-18 11:44] VITALS: BMI 37.0
[2020-03-17 12:37] LABS: Anion Gap 6 (5-15); BUN 23 mg/dL (7-18); BUN/Creat Ratio 28.7 RATIO (10-20); Calcium,Total 9.8 mg/dL (8.5-10.1); Chloride 105 mmol/L (98-107); Cholesterol 159 mg/dL (200); EST Glomerular Filtration Rate 76 mL/min (>60); Est Glom Filt Rate - Afr Amer 92 mL/min (>60); Glucose 99 mg/dL (74-106); High Density Lipoprotein 62 mg/dL; Potassium 4.5 mmol/L (3.5-5.1); Sodium Level 140 mmol/L (136-145); Triglycerides 89 mg/dL; Very Low Density Lipoprotein 18 mg/dL (5-40)
== END ==
PROVIDERS: PCP Internal Medicine; Visit Provider Family Medicine
DX: E78.5 Hyperlipidemia, unspecified (principal); I10 Essential (primary) hypertension
CPT/HCPCS: 36415; 80048; 80061

== ENCOUNTER → 2020-07-15 14:01 | Outpatient (CLI) | payer MEDICARE, OTHER, SELFPAY ==
[2019-07-18 11:44] VITALS: BMI 37.0
[2020-07-15 16:19] LABS: Anion Gap 4 (5-15); BUN 17 mg/dL (7-18); BUN/Creat Ratio 19.6 RATIO (10-20); Calcium,Total 9.3 mg/dL (8.5-10.1); Chloride 107 mmol/L (98-107); Creatinine, Serum 0.87 mg/dL (0.55-1.02); EST Glomerular Filtration Rate 70 mL/min (>60); Est Glom Filt Rate - Afr Amer 84 mL/min (>60); Glucose 91 mg/dL (74-106); Potassium 3.5 mmol/L (3.5-5.1); Sodium Level 141 mmol/L (136-145); Thyroid Stim Hormone (TSH) 1.58 uIU/mL (0.358-3.74)
== END ==
PROVIDERS: PCP Family Medicine; Referring Provider Family Medicine; Visit Provider Family Medicine
DX: R61 Generalized hyperhidrosis (principal)
CPT/HCPCS: 36415; 80048; 84443

== ENCOUNTER → 2020-07-15 16:15 | Outpatient (CLI) | payer MEDICARE, OTHER, SELFPAY ==
[2019-07-18 11:44] VITALS: BMI 37.0
--- NOTE | 2020-07-15 16:19 | BI_ITS ---
MAMMOGRAPHY - BILATERAL SCREENING REASON FOR EXAM: Female, 64 years old. Routine annual screening examination. PERTINENT HISTORY: FAM HX MOTHER AGE 62, SISTER AGE 53, MAT AUNT AGE 60S NO SX TECHNIQUE: Digital bilateral breast jerry (3D mammographic acquisition) in the CC and MLO projections. 2-D mediolateral oblique (MLO) and craniocaudad (CC) views of both breasts were obtained. CAD: Full Field Digital Mammography with Computer Added Detection was performed. COMPARISON: 07/01/2019 and 05/28/2018 FINDINGS: Breast Composition: The breasts are almost entirely fatty. There are no dominant masses or suspicious calcifications. No other significant abnormalities are identified. BI/SCREEN MAMM (CAD) W/JERRY BILAT IMPRESSION: Stable bilateral screening mammogram. Yearly follow-up mammogram recommended. (A) ASSESSMENT CATEGORY: BIRADS Category 2: Benign. A letter regarding these results will be sent to the patient by the facility within 30 days. Approximately 10% of breast cancers are not detected by mammography. A normal mammogram should not delay biopsy of a clinically suspicious abnormality. [id number] Electronically Signed: Meagan Julio, at 15:45 EDT Tel , Service support ,
== END ==
PROVIDERS: PCP Family Medicine; Referring Provider Family Medicine; Visit Provider Family Medicine
DX: Z12.31 Encounter for screening mammogram for malignant neoplasm of breast (principal); R61 Generalized hyperhidrosis
CPT/HCPCS: 36415; 77063; 77067; 80048; 84443

== ENCOUNTER → 2021-04-20 14:53 | Outpatient (CLI) | payer MEDICARE, OTHER, SELFPAY ==
[2019-07-18 11:44] VITALS: BMI 37.0
--- NOTE | 2021-04-20 14:59 | RAD_ITS ---
HISTORY: RIGHT SHOULDER PAIN. TECHNIQUE: XR Shoulder Min 2 Views. Number of images including paperwork: 4. COMPARISON: None. FINDINGS: OSSEOUS STRUCTURES: No acute fracture identified. Mineralization unremarkable. JOINT SPACES: No glenohumeral dislocation. Acromioclavicular joint maintained without subluxation. Mild degenerative change. Calcific tendinitis with ossifications measuring up to 11 mm at the greater tuberosity. SOFT TISSUES: Visualized upper lung clear. RAD/Shoulder min 2 Views IMPRESSION: No acute fracture or dislocation identified in the right shoulder. Mild degenerative change and calcific tendinitis. at 1232 Reported and signed by: Fadia Seymour MD Electronically Signed: Fadia Seymour MD at 12:31 EDT Tel , Service support ,
== END ==
PROVIDERS: PCP Family Medicine; Referring Provider Family Medicine; Visit Provider Family Medicine
DX: M25.511 Pain in right shoulder (principal)
CPT/HCPCS: 73030

== ENCOUNTER → 2021-06-22 08:27 | Outpatient (CLI) | payer MEDICARE, OTHER, SELFPAY ==
[2021-06-22 10:08] LABS: Absolute Lymphocyte Count 2.34 X10^3/uL (0.83-4.51); Absolute Neutrophil Count 4.6 X10^3/uL (2.0-7.7); Basophil# 0.05 X10^3/uL; Basophil% 0.6 % (0-1); Eosinophil# 0.14 X10^3/uL; Eosinophils% 1.8 % (0-5); Hemoglobin 12.7 g/dL (12.0-15.0); Lymphocyte # 2.34 X10^3/ul (0.83-4.51); Lymphocyte % 29.9 % (19-41); Mean Corp Hgb Conc 32.6 g/dL (32-36); Mean Corpuscular Hgb 31.8 pg (27.0-32.0); Mean Corpuscular Volume 97.7 fL (81-99); Mean Platelet Vol. 10.2 fl (6.2-12.0); Monocyte# 0.65 X10^3/uL; Monocyte% 8.3 % (0-10); NRBC Flagged by Analyzer 0 % (0-5); Neutrophil # 4.61 X10^3/uL (2.7-7.7); Platelet Count 366 K/mm3 (150-450); RBC Distribution Width CV 14.1 % (11.6-14.6); Red Blood Count 3.99 M/mm3 (4.2-5.4); White Blood Count 7.8 K/mm3 (4.4-11.0)
[2021-06-22 10:42] LABS: Anion Gap 3 (5-15); BUN 18 mg/dL (7-18); BUN/Creat Ratio 21.2 RATIO (10-20); Calcium,Total 9.4 mg/dL (8.5-10.1); Chloride 107 mmol/L (98-107); Creatinine, Serum 0.85 mg/dL (0.55-1.02); EST Glomerular Filtration Rate 71 mL/min (>60); Est Glom Filt Rate - Afr Amer 86 mL/min (>60); Glucose 97 mg/dL (74-106); Potassium 4.2 mmol/L (3.5-5.1); Sodium Level 140 mmol/L (136-145)
== END ==
PROVIDERS: PCP Family Medicine; Referring Provider Family Medicine; Visit Provider Family Medicine
DX: R22.2 Localized swelling, mass and lump, trunk (principal)
CPT/HCPCS: 36415; 80048; 85025

== ENCOUNTER → 2021-06-27 08:33 | Outpatient (CLI) | payer MEDICARE, OTHER, SELFPAY ==
--- NOTE | 2021-06-27 08:36 | US_ITS ---
STUDY: SUPERFICIAL ULTRASOUND - LEFT CLAVICULAR REGION REASON FOR EXAM: Female, 65 years old. MASS OF L CHEST WALL -- NEOPLASM L UPPER CHEST PALPABLE LUMP ON LT CLAVICLE TECHNIQUE: A superficial ultrasound was performed with real-time and static allen-scale imaging. COMPARISON: None. FINDINGS: The palpable abnormality corresponds to a 4.9 cm x 2.3 cm x 1.5 cm hypoechoic solid nodular lesion. Biopsies recommended. US/Chest IMPRESSION: 4.9 cm x 2.3 cm by 1.5 cm hypoechoic solid nodule. Biopsy is recommended. Electronically Signed: Haim Hawk MD at 15:44 EDT , Service support ,
== END ==
PROVIDERS: PCP Family Medicine; Referring Provider Family Medicine; Visit Provider Family Medicine
DX: R22.2 Localized swelling, mass and lump, trunk (principal)
CPT/HCPCS: 76604

== ENCOUNTER → 2021-08-16 08:14 | Outpatient (CLI) | payer MEDICARE, OTHER, SELFPAY ==
--- NOTE | 2021-08-16 08:16 | BI_ITS ---
MAMMOGRAPHY - BILATERAL SCREENING REASON FOR EXAM: Female, 65 years old. Routine annual screening examination. PERTINENT HISTORY: Sister with breast cancer. Mother with breast cancer. Aunt with breast cancer. TECHNIQUE: Digital bilateral breast brian (3D mammographic acquisition) in the CC and MLO projections. 2-D mediolateral oblique (MLO) and craniocaudad (CC) views of both breasts were obtained. CAD: Full Field Digital Mammography with Computer Added Detection was performed. COMPARISON: Comparison is made with prior study 07/15/2020 and 07/01/2019. FINDINGS: Breast Composition: The breasts are almost entirely fatty. There are no dominant masses or suspicious calcifications. No other significant abnormalities are identified. There has been no significant change since the prior study. BI/SCREENING MAMM (CAD), BILAT IMPRESSION: Stable bilateral screening mammogram. Yearly follow-up mammogram recommended. (A) ASSESSMENT CATEGORY: BIRADS Category 1: Negative. A letter regarding these results will be sent to the patient by the facility within 30 days. Approximately 10% of breast cancers are not detected by mammography. A normal mammogram should not delay biopsy of a clinically suspicious abnormality. [id number] Electronically Signed: Haim Hawk MD at 9:40 EST , Service support ,
== END ==
PROVIDERS: PCP Family Medicine; Referring Provider Family Medicine; Visit Provider Family Medicine
DX: Z12.31 Encounter for screening mammogram for malignant neoplasm of breast (principal)
CPT/HCPCS: 77067

== ENCOUNTER → 2021-08-17 | Outpatient (CLI) | payer MEDICARE, OTHER, SELFPAY ==
--- NOTE | 2021-08-17 12:55 | LIP_PTH ---
PATIENT: SERENE LANGE LOC: [facility] U#:[id number] AGE/SX: 65/F ROOM: RE08/17/[address]: Dr. Collins Lucas MD : 1955 BED: DIS: 08/17/2021 SPEC #: [id number] RECD: 08/17/21 16:16 STATUS: TRACY OSCAR #: [id number] NELSON: 08/17/21 12:[address]: Collins Lucas DEPT: SURGICAL PATHOLOGY RECD BY: Jazz Khalil ENTERED: 08/18/21 12:24 SP TYPE: LIPOMA OTHR DR: Dr. Burt Talavera MD Tissues: Soft tissues, NOS Procedures: Surgery Specimen Level III HEADER OPERATION: Excision left clavicular lipoma PRE-OP DIAGNOSIS: Clavicular lipoma TISSUE SUBMITTED: Left clavicle tissue MICROSCOPIC DIAGNOSIS Left clavicular lipoma, excision: Mature adipose tissue, consistent with lipoma. SJ:juan 08/19/2021 MICROSCOPIC DESCRIPTION Slides are reviewed. GROSS DESCRIPTION Received in fixative is one container labeled with the patient's name and designated left clavicle. The specimen consists of an irregular piece of adipose tissue measuring 5.5 x 3 x 2 cm. The external surface is inked. Sections reveal yellow adipose cut surfaces without areas of hemorrhage, necrosis or cystic degeneration. Rn Clinical sections are submitted in two cassettes. / NICHOLAS:juan 08/18/21 TC:1 CPT: 44195
== END | disposition home or self-care (01) ==
LOC: LABSPEC 16:45
PROVIDERS: PCP Family Medicine; Referring Provider Surgery; Visit Provider Surgery
DX: D17.22 Benign lipomatous neoplasm of skin and subcutaneous tissue of left arm (principal)
CPT/HCPCS: 88304

== ENCOUNTER 2021-09-23 09:00 | Outpatient (RCR) | payer MEDICARE, OTHER, SELFPAY ==
--- NOTE | 2021-09-02 09:24 | HP.PTEVAL_ITS ---
Patient's Visit Information SERENE LANGE is a 65 year old F referred to Physical Therapy by Dr. Burt Talavera MD with a diagnosis of R shoulder pain.. Date of Evaluation: 09/02/21 Physical Therapist: Rip Lucas DPT, OCS, CSCS - Visit Plan Frequency: 3x /Week Duration: 4-6 Weeks Plan: 2-3x/week for 3-6 weeks. Postural correction and strengthening RC strength all progress to HEP, pec stretch, mobs for painactivity modification, US nonthermal to R supraspinatus. - Subjective R shoulder hurts for years. X ray shows a little arthritis. Got cortisone shot which helped but only for two weeks. In evening has trouble elevating and ext rotating. [place] and upper lateral R arm. Has been hurting long time. Feels good at rest. Does throb sometimes mostly in evening. Pain was worse with driving this summer. hauled [place] stuff Sunday and no problem until the evening. Icy hot can help. sleep is interrupted as she cannot lie on Right side. Not employed. I can do most things, feels better with working it. Every now and then worse later in day with lots of activity. No regular ex for shoulder. - Pain R shoulder pain Pain Intensity (Out of 10): 0 Pain Intensity Range: 0, 6 - Objective Walks and transfers I. Posture is Fw head and shoulders with protracted scapula. Tender to touch over supraspinatus insertion otherwise feels good. + HK and neer test. - drop arm, - ext rotation lag test. all on right side. Full aROM B shoulders, elbows and wrists, pain end range of ext rotation only today. 70 ext rotation ROM B, L3 IR B, 155 flexion. reflexes 2/3 bi and tri. Sensation WNL to gross light touch in UE. Strength 4+ wrists, 4+ elbows without pain. IR B 4, ER 4- and painful R and 4 L. flexion painful R and 4- and L 4. abd 4- B without pain. + empty can R. - Balance/Special Test Scores Quick DASH Score: 18.1800 - Goals Goal 1:: Full aROM R shoulder without pain Goal Time Frame: 4-6 Weeks Goal 2:: Pt feel 75% better with pain in evening to 1/10 at worst. Goal Time Frame: 4-6 Weeks Goal 3:: Quickdash 15 or better. Goal Time Frame: 4-6 Weeks Goal 4:: Sleep without interruption at night. Goal Time Frame: 4-6 Weeks Goal 5:: I HEP to minimize future problems. Goal Time Frame: 4-6 Weeks - Rehabilitation Potential Physical Therapy Diagnosis: R shoulder pain likely impoingement supraspinatus. Rehabilitation Potential: Good - Anticipated Interventions Patient/Client Instruction: Educate patient on: Condition, Plan of Care For the Purpose of:: To decrease pain, To decrease swelling/inflammation, To improve muscle performance and motor function, To increase tolerance to activity/condition/position, To improve ability of physical actions for home/community/work/leisure Therapeutic Exercise to Include: Strength training, Postural training, Flexibilty training, Passive ROM, Active ROM, Scapular Strength/Stabilization For the Purpose of:: To decrease pain, To increase ROM, To improve muscle performance and motor function, To increase tolerance to activity/condition/position, To improve ability of physical actions for home/community/work/leisure Manual Therapy Techniques to Include: Mobilization, Passive ROM For the Purpose of:: To decrease pain, To increase ROM Cryotherapy (ice pack, ice massage): Yes Ultrasound (thermal/non thermal): Yes - nonthermal R supra For the Purpose of:: To decrease swelling/inflammation Thank you for the opportunity to evaluate your patient. For Medicare and Medicare HMO plans, please review the plan of care and approve it. It will need to be FAXED BACK to us at [phone] for Medicare purposes. For Medicare only, by signing this I certify the plan of care. Please let me know if there are questions or concerns regarding this plan of care. Physician Signature: Date:
--- NOTE | 2021-09-23 09:36 | HP.PTDCSUM ---
It has been my pleasure to treat SERENE LANGE referred by Dr. Burt Talavera MD, with the diagnosis of R shoulder pain. for a total of 7 visit(s). Discharge Date: 09/23/21 Please see the following information for a summary of their discharge status. Subjective: Doing better. [place] No pain during that week that she was gone. Lifted alot of boxes without issues. Sleeping Ok. Loife pretty normal. R shoulder pain Pain Intensity (Out of 10): 0 % Improvement: 100 Objective/Function: Full aROM and symmnetrical 4+/5 strength R shoulder without pain. Goal 1:: Full aROM R shoulder without pain Goal Progress: Goal Met Goal 2:: Pt feel 75% better with pain in evening to 1/10 at worst. Goal Progress: Goal Met Goal 3:: Quickdash 15 or better. Goal Progress: Goal Met Goal 4:: Sleep without interruption at night. Goal Progress: Goal Met Goal 5:: I HEP to minimize future problems. Goal Progress: Goal Met Plan: d/c If there are questions or concerns regarding this patient's physical therapy, please feel free to call me at [phone]. Thank you for the referral of this patient. Sincerely, Rip Lucas, DPT, OCS, CSCS Balance/Gait/Functional tests - Balance/Special Test Scores Quick DASH Score: 4.5450
== END 2021-09-23 19:00 | disposition home or self-care (01) ==
LOC: PT 09:00
PROVIDERS: PCP Family Medicine; Referring Provider Family Medicine; Visit Provider Family Medicine
DX: M25.511 Pain in right shoulder (principal)
CPT/HCPCS: 97035; 97110; 97161

== ENCOUNTER 2021-12-29 09:53 | Outpatient (CLI) | payer MEDICARE, OTHER, SELFPAY ==
[2021-12-29 12:15] LABS: Anion Gap 5 (5-15); BUN 20 mg/dL (7-18); BUN/Creat Ratio 26.2 RATIO (10-20); Chloride 108 mmol/L (98-107); Creatinine, Serum 0.76 mg/dL (0.55-1.02); EST Glomerular Filtration Rate 80 mL/min (>60); Est Glom Filt Rate - Afr Amer 97 mL/min (>60); Glucose 95 mg/dL (74-106); Potassium 4.1 mmol/L (3.5-5.1); Sodium Level 141 mmol/L (136-145)
[2021-12-29 12:24] LABS: Hemoglobin A1c 5.6 % (3.8-5.6)
== END 2021-12-29 23:59 | disposition home or self-care (01) ==
LOC: MFPLAB 09:59
PROVIDERS: PCP Family Medicine; Referring Provider Family Medicine; Visit Provider Family Medicine
DX: Z00.00 Encounter for general adult medical examination without abnormal findings (principal); I10 Essential (primary) hypertension
CPT/HCPCS: 36415; 80048; 83036

== ENCOUNTER → 2022-07-14 | Outpatient (CLI) | payer MEDICARE, OTHER, SELFPAY ==
[2022-07-14 10:29] LABS: ALB/GLOB Ratio 0.9 RATIO (0.9-2.4); AST(SGOT) 24 U/L (15-37); Alanine Aminotransfer ALT/SGPT 31 U/L (13-56); Albumin, Serum 3.4 g/dL (3.2-5.0); Alkaline Phosphatase 95 U/L (45-117); Anion Gap 7 (5-15); BUN 18 mg/dL (7-18); BUN/Creat Ratio 23.7 RATIO (10-20); Calcium,Total 9.1 mg/dL (8.5-10.1); Chloride 110 mmol/L (98-107); Cholesterol 148 mg/dL (200); Creatinine, Serum 0.76 mg/dL (0.55-1.02); EST Glomerular Filtration Rate 81 mL/min (>60); Est Glom Filt Rate - Afr Amer 98 mL/min (>60); Globulin 3.8 g/dL (2.2-4.2); Glucose 101 mg/dL (74-106); High Density Lipoprotein 66 mg/dL; Protein, Total 7.2 g/dL (6.4-8.2); Sodium Level 142 mmol/L (136-145); Triglycerides 72 mg/dL; Very Low Density Lipoprotein 14 mg/dL (5-40)
== END | disposition home or self-care (01) ==
LOC: MFPLAB 08:41
PROVIDERS: PCP Family Medicine; Referring Provider Family Medicine; Visit Provider Family Medicine
DX: E78.5 Hyperlipidemia, unspecified (principal)
CPT/HCPCS: 36415; 80053; 80061

== ENCOUNTER 2022-08-30 08:05 | Outpatient (CLI) | payer MEDICARE, OTHER, SELFPAY ==
--- NOTE | 2022-08-30 08:06 | BI_ITS ---
MAMMOGRAPHY - BILATERAL SCREENING REASON FOR EXAM: Female, 66 years old. Routine annual screening examination. PERTINENT HISTORY: Mother, sister, and aunts with breast cancer. TECHNIQUE: Digital bilateral breast jerry (3D mammographic acquisition) in the CC and MLO projections. 2-D mediolateral oblique (MLO) and craniocaudad (CC) views of both breasts were obtained. CAD: Full Field Digital Mammography with Computer Added Detection was performed. COMPARISON: 08/16/2021, 07/15/2020. FINDINGS: Breast Composition: There are scattered areas of fibroglandular density. There are no dominant masses or suspicious calcifications. No other significant abnormalities are identified. There has been no significant change since the prior study. BI/SCRN MAMM (CAD)W/JERRY BILAT IMPRESSION: Stable bilateral screening mammogram. Yearly follow-up mammogram recommended. (A) ASSESSMENT CATEGORY: BIRADS Category 1: Negative. A letter regarding these results will be sent to the patient by the facility within 30 days. Approximately 10% of breast cancers are not detected by mammography. A normal mammogram should not delay biopsy of a clinically suspicious abnormality. Electronically Signed: Haroon Linder, at 14:22 EST ,
== END 2022-08-30 23:59 | disposition home or self-care (01) ==
LOC: OPBI 08:06
PROVIDERS: PCP Family Medicine; Visit Provider Family Medicine
DX: Z12.31 Encounter for screening mammogram for malignant neoplasm of breast (principal); Z80.3 Family history of malignant neoplasm of breast
CPT/HCPCS: 77063; 77067

== ENCOUNTER → 2022-10-05 | Outpatient (CLI) | payer MEDICARE, OTHER, SELFPAY ==
--- NOTE | 2022-10-05 09:51 | RAD_ITS ---
STUDY: X-RAY - LUMBAR SPINE REASON FOR EXAM: Female, 66 years old. BACK PAIN TECHNIQUE: 3 view(s) of the lumbar spine were obtained. COMPARISON: None FINDINGS: Normal lumbar lordosis. Mild levoscoliosis centered at L3. There is a normal alignment of the vertebrae. There is multilevel endplate spondylosis of the lumbar vertebrae. There is multi-level degenerative disc disease with multi-level disc space narrowing. Facet hypertrophy in the lower lumbar spine. The soft tissue structures are unremarkable. RAD/Lumbar Spine 2 or 3 Views IMPRESSION: Mild levoscoliosis with diffuse degenerative disc disease. Electronically Signed: Candelario Guevara MD at 10:14 EST ,
== END | disposition home or self-care (01) ==
LOC: MTRAD 09:50
PROVIDERS: PCP Family Medicine; Referring Provider Family Medicine; Visit Provider Family Medicine
DX: M41.9 Scoliosis, unspecified (principal); M51.36 Other intervertebral disc degeneration, lumbar region; M47.816 Spondylosis without myelopathy or radiculopathy, lumbar region; M54.9 Dorsalgia, unspecified
CPT/HCPCS: 72100

== ENCOUNTER → 2023-01-19 | Outpatient (CLI) | payer MEDICARE, OTHER, SELFPAY ==
--- NOTE | 2023-01-19 12:49 | ART_ITS ---
Reason For Study: PVD Procedure A bilateral lower extremity continuous wave Doppler with analog waveform analysis,segmental pressures,and ankle brachial indexes with exercise. Left Segmental Pressures Left brachial= 115mmHg. Left posterior tibial artery = 135mmHg. Left dorsalis pedis artery = 140mmHg. Left digit = 83 mmHg. The left dorsalis pedis waveforms are triphasic. The left posterior tibial artery waveforms are triphasic. Right Segmental Pressures Right brachial= 112mmHg. Right posterior tibial artery = 139mmHg. Right dorsalis pedis artery = 123mmHg. Right digit = 93 mmHg. The right dorsalis pedis waveforms are triphasic. The right posterior tibial artery waveforms are triphasic. Indices The right ankle brachial index by the dorsalis pedis is 1.07. The right ankle brachial index by the posterior tibial artery is 1.21. The right digital-brachial index is 0.81. The left ankle brachial index by the dorsalis pedis is 1.22. The left ankle brachial index by the posterior tibial artery is 1.17. The left digital-brachial index is 0.72. VL/Lower Ext Art Exam w/ Exercise Interpretation Summary Right lower extremity posterior tibialis and dorsalis pedis ankle-brachial mylene tyler are normal at 1.21 and 1.07 respectively with normal triphasic Doppler waveforms. Right digital brachial index is normal at 0.81. Normal right lower extremity post exercise index of 1.19 Left posterior tibial and dorsalis pedis ankle-brachial indices are normal at 1 .17 and 1.22 respectively with normal triphasic Doppler waveforms Borderline left digital brachial index of 0.72 Normal left lower extremity post exercise index of 1.24 Ordering Physician: Noel Chahal Referring Physician: Burt Talavera Performed By: Saida Kelsey RVT
[2023-01-19 12:58] LABS: Anion Gap 2 (5-15); BUN 18 mg/dL (7-18); BUN/Creat Ratio 22.6 RATIO (10-20); Calcium,Total 9.6 mg/dL (8.5-10.1); Chloride 110 mmol/L (98-107); Cholesterol 152 mg/dL (200); EST Glomerular Filtration Rate 76 mL/min (>60); Est Glom Filt Rate - Afr Amer 92 mL/min (>60); Glucose 89 mg/dL (74-106); High Density Lipoprotein 66 mg/dL; Potassium 4.1 mmol/L (3.5-5.1); Sodium Level 140 mmol/L (136-145); Triglycerides 75 mg/dL; Very Low Density Lipoprotein 15 mg/dL (5-40)
== END | disposition home or self-care (01) ==
PROVIDERS: PCP Family Medicine; Visit Provider Podiatrist
DX: I73.9 Peripheral vascular disease, unspecified (principal); I10 Essential (primary) hypertension
CPT/HCPCS: 36415; 80048; 80061; 93924

== ENCOUNTER → 2023-01-31 | Outpatient (CLI) | payer MEDICARE, OTHER, SELFPAY ==
--- NOTE | 2023-01-31 15:50 | MRI_ITS ---
INDICATION: LEFT FOOT,INTERMETATARSAL NEUROMA ,OSTEOARTHRITIS EXAMINATION: MRI - LEFT MR Foot W/O Contrast TECHNIQUE: Multiplanar and multisequence MR images of the LEFT foot. IV Contrast Dosage and Agent: None. COMPARISON: None. FINDINGS: BONE: Normal forefoot alignment.] [No fracture or marrow edema. JOINTS: Moderate osteoarthritis first MTP joint. Mild osteoarthritis is seen involving the tarsal bones, second through fifth MTP joints and throughout the interphalangeal joints. Small first MTP joint effusion. MUSCLES: Normal bulk and signal. LIGAMENTS: The Lisfranc ligament is intact. TENDONS: The flexor and extensor tendons are intact. MISCELLANEOUS: Intact plantar fascia. OTHER SOFT TISSUES: Caudal to the second MTP joint is a cystic focus. This measures 8 mm AP by 6 mm craniocaudal by 7 mm transverse. This could represent neuroma or could represent synovial cyst.. MRI/Lower Ext/No Jt/w/o IMPRESSION: Lesion caudal to the second MTP joint. This has a cystic appearance. This could represent synovial cyst or could represent neuroma. Degenerative changes as above. Electronically Signed: William Arcos MD, MEG at 22:49 EDT ,
--- NOTE | 2023-01-31 16:35 | MRI_ITS ---
INDICATION: RIGHT FOOT, INTERMETATARSAL NEUROMA,OSTEOARTHRITIS EXAMINATION: MRI - RIGHT MR Foot W/O Contrast TECHNIQUE: Multiplanar and multisequence MR images of the RIGHT foot. IV Contrast Dosage and Agent: None. COMPARISON: None. FINDINGS: BONE: Normal forefoot alignment.] [No fracture or marrow edema. JOINTS:. Moderate osteoarthritis first MTP joint. Mild osteoarthritis throughout the tarsal bones. Mild osteoarthritis second through fifth MTP joints as well as throughout the interphalangeal joints. MUSCLES: Normal bulk and signal. LIGAMENTS: The Lisfranc ligament is intact. TENDONS: The flexor and extensor tendons are intact. MISCELLANEOUS: Intact plantar fascia. OTHER SOFT TISSUES: Moderate MTP joint effusion. MRI/Lower Ext/No Jt/w/o IMPRESSION: Moderate osteoarthritis first MTP joint. Moderate first MTP joint effusion. Mild osteoarthritis remainder of the mid and forefoot detailed above. Electronically Signed: William Arcos MD, MEG at 22:51 EDT ,
== END | disposition home or self-care (01) ==
LOC: MRI 15:46
PROVIDERS: PCP Family Medicine; Referring Provider Podiatrist; Visit Provider Podiatrist
DX: M19.071 Primary osteoarthritis, right ankle and foot (principal); G57.81 Other specified mononeuropathies of right lower limb
CPT/HCPCS: 73718

== ENCOUNTER → 2023-07-18 | Outpatient (CLI) | payer MEDICARE, OTHER, SELFPAY ==
[2023-07-18 13:09] LABS: Anion Gap 6 (5-15); BUN 19 mg/dL (7-18); BUN/Creat Ratio 25.3 RATIO (10-20); Calcium,Total 9.3 mg/dL (8.5-10.1); Chloride 110 mmol/L (98-107); Cholesterol 155 mg/dL (200); Creatinine, Serum 0.75 mg/dL (0.55-1.02); EST Glomerular Filtration Rate 81 mL/min (>60); Est Glom Filt Rate - Afr Amer 99 mL/min (>60); Glucose 85 mg/dL (74-106); High Density Lipoprotein 61 mg/dL; Sodium Level 142 mmol/L (136-145); Triglycerides 92 mg/dL; Very Low Density Lipoprotein 18 mg/dL (5-40)
== END | disposition home or self-care (01) ==
LOC: MFPLAB 10:08
PROVIDERS: PCP Family Medicine; Visit Provider Family Medicine
DX: I10 Essential (primary) hypertension (principal)
CPT/HCPCS: 36415; 80048; 80061

== ENCOUNTER → 2023-09-17 | Outpatient (CLI) | payer MEDICARE, OTHER, SELFPAY ==
--- NOTE | 2023-09-17 08:45 | BI_ITS ---
MAMMOGRAPHY - BILATERAL SCREENING REASON FOR EXAM: Female, 67 years old. Routine annual screening examination. PERTINENT HISTORY: Sister with breast cancer. Mother with breast cancer. Aunt with breast cancer. TECHNIQUE: Digital bilateral breast jerry (3D mammographic acquisition) in the CC and MLO projections. 2-D mediolateral oblique (MLO) and craniocaudad (CC) views of both breasts were obtained. CAD: Full Field Digital Mammography with Computer Added Detection was performed. COMPARISON: Comparison is made with prior study dated August 30, 2022 and August 16, 2021. FINDINGS: Breast Composition: There are scattered areas of fibroglandular density. There are no dominant masses or suspicious calcifications. No other significant abnormalities are identified. There has been no significant change since the prior study. BI/SCRN MAMM (CAD)W/JERRY BILAT IMPRESSION: Stable bilateral screening mammogram. Yearly follow-up mammogram recommended. (A) ASSESSMENT CATEGORY: BIRADS Category 1: Negative. A letter regarding these results will be sent to the patient by the facility within 30 days. Approximately 10% of breast cancers are not detected by mammography. A normal mammogram should not delay biopsy of a clinically suspicious abnormality. [id number] Electronically Signed: Haim Hawk MD at 10:02 EST ,
== END | disposition home or self-care (01) ==
LOC: OPBI 08:45
PROVIDERS: PCP Family Medicine; Referring Provider Family Medicine; Visit Provider Family Medicine
DX: Z12.31 Encounter for screening mammogram for malignant neoplasm of breast (principal); Z80.3 Family history of malignant neoplasm of breast
CPT/HCPCS: 77063; 77067

== ENCOUNTER → 2023-12-31 | Outpatient (CLI) | payer MEDICARE, OTHER, SELFPAY ==
--- NOTE | 2023-12-31 08:45 | MRI_ITS ---
STUDY: MRI LEFT MIDFOOT REASON FOR EXAM: Female, 68 years old. Foot pain under toes. Evaluate for neuroma. TECHNIQUE: Standardized fat and water weighted pulse sequences were obtained in all 3 orthogonal planes. COMPARISON: None. FINDINGS: Moderate arthrosis of the MTP and IP joints with hammertoe deformities (coronal series 7 images 4-12, sagittal series 8 images 8-33). Mild arthrosis of the midfoot and TMT joints (coronal series 7 images 6-14). Normal subcutis adipose space. MRI/Lower Ext/No Jt/w/o IMPRESSION: Mild arthrosis of the midfoot and the TMT joints. Moderate arthrosis of the MTP and IP joints of the first through fifth digits with minimal hammertoe deformities. No other abnormality. Electronically Signed: Heracilo Fung MD at 12:49 EDT ,
== END | disposition home or self-care (01) ==
LOC: MRI 08:14
PROVIDERS: PCP Podiatrist; Referring Provider Podiatrist; Visit Provider Podiatrist
DX: G57.62 Lesion of plantar nerve, left lower limb (principal); M79.672 Pain in left foot
CPT/HCPCS: 73718

== ENCOUNTER 2024-01-02 10:30 | Outpatient (RCR) | payer SELFPAY | END 2024-01-06 23:59 | LOC: NS 10:30 | PROVIDERS: PCP Family Medicine | DX: Z71.3 Dietary counseling and surveillance (principal); E66.9 Obesity, unspecified | CPT/HCPCS: 97802; 97803 ==

== ENCOUNTER → 2024-01-17 | Outpatient (CLI) | payer SELFPAY ==
[2024-01-17 12:42] LABS: Anion Gap 3 (5-15); BUN 20 mg/dL (7-18); BUN/Creat Ratio 24.8 RATIO (10-20); Calcium,Total 9.5 mg/dL (8.5-10.1); Chloride 110 mmol/L (98-107); Cholesterol 182 mg/dL (200); EST Glomerular Filtration Rate 75 mL/min (>60); Est Glom Filt Rate - Afr Amer 91 mL/min (>60); Glucose 93 mg/dL (74-106); High Density Lipoprotein 68 mg/dL; Potassium 4.2 mmol/L (3.5-5.1); Sodium Level 141 mmol/L (136-145); Triglycerides 85 mg/dL; Very Low Density Lipoprotein 17 mg/dL (5-40)
== END | disposition home or self-care (01) ==
LOC: MFPLAB 10:02
PROVIDERS: PCP Podiatrist; Visit Provider Family Medicine
DX: I10 Essential (primary) hypertension (principal)
CPT/HCPCS: 36415; 80048; 80061

== ENCOUNTER → 2024-06-04 | Outpatient (CLI) | payer MEDICARE, OTHER, SELFPAY ==
[2024-06-04 12:37] LABS: Absolute Lymphocyte Count 2.25 X10^3/uL (0.83-4.51); Absolute Neutrophil Count 3.9 X10^3/uL (2.0-7.7); Basophil# 0.06 X10^3/uL; Basophil% 0.9 % (0-1); Eosinophil# 0.17 X10^3/uL; Eosinophils% 2.4 % (0-5); Hematocrit 40.7 % (37-47); Hemoglobin 13.1 g/dL (12.0-15.0); Lymphocyte # 2.25 X10^3/ul (0.83-4.51); Mean Corp Hgb Conc 32.2 g/dL (32-36); Mean Corpuscular Hgb 31.1 pg (27.0-32.0); Mean Corpuscular Volume 96.7 fL (81-99); Mean Platelet Vol. 10.6 fl (6.2-12.0); Monocyte# 0.61 X10^3/uL; Monocyte% 8.7 % (0-10); NRBC Flagged by Analyzer 0 % (0-5); Neutrophil # 3.92 X10^3/uL (2.7-7.7); Neutrophil % 55.7 % (47-70); Platelet Count 315 K/mm3 (150-450); RBC Distribution Width CV 14.1 % (11.6-14.6); RBC Distribution Width SD 50.4 fl (35.1-43.9); Red Blood Count 4.21 M/mm3 (4.2-5.4)
[2024-06-04 12:55] LABS: ALB/GLOB Ratio 0.9 RATIO (0.9-2.4); AST(SGOT) 23 U/L (15-37); Alanine Aminotransfer ALT/SGPT 18 U/L (13-56); Albumin, Serum 3.6 g/dL (3.2-5.0); Alkaline Phosphatase 87 U/L (45-117); Anion Gap 6 (5-15); BUN 23 mg/dL (7-18); Calcium,Total 9.7 mg/dL (8.5-10.1); Chloride 108 mmol/L (98-107); Creatinine, Serum 0.77 mg/dL (0.55-1.02); EST Glomerular Filtration Rate 79 mL/min (>60); Est Glom Filt Rate - Afr Amer 96 mL/min (>60); Globulin 3.8 g/dL (2.2-4.2); Glucose 97 mg/dL (74-106); Potassium 3.9 mmol/L (3.5-5.1); Protein, Total 7.4 g/dL (6.4-8.2); Sodium Level 140 mmol/L (136-145)
== END | disposition home or self-care (01) ==
LOC: MFPLAB 09:36
PROVIDERS: PCP Family Medicine; Visit Provider Family Medicine
DX: Z01.818 Encounter for other preprocedural examination (principal)
CPT/HCPCS: 36415; 80053; 85025

== ENCOUNTER 2024-06-13 05:51 | Day surgery (SDC) | payer MEDICARE, OTHER, SELFPAY ==
--- NOTE | 2024-06-13 | NEUR_PTH ---
PATIENT: SERENE LANGE LOC: [facility] [place] U#:[id number] AGE/SX: 68/F ROOM: RE06/13/[address]: Dr. Noel Chahal DPM : 1955 BED: DIS: 06/13/2024 SPEC #: [id number] RECD: 06/13/24 11:05 STATUS: TRACY OSCAR #: [id number] NELSON: 06/13/24 00:[address]: Noel Chahal DEPT: SURGICAL PATHOLOGY RECD BY: Jose George ENTERED: 06/13/24 11:06 SP TYPE: NEUROMA OTHR DR: Dr. Burt Talavera MD Tissues: A - NEUROMA B - NEUROMA C - Nail of toe, NOS Procedures: Special Stain Group I Surgery Specimen Level III GMS Stain (control) HEADER OPERATION: Excision of left foot second and third intermetatarsal space PRE-OP DIAGNOSIS: Neuroma left foot TISSUE SUBMITTED: A- Neuroma of 3rd intermetatarsal pace left foot, B- Neuroma of 2nd intermetatarsal space left foot, C- Right first toenail MICROSCOPIC DIAGNOSIS A. Soft tissue, third intermetatarsal space, left foot, excision: Consistent with neuroma. B. Sof tissue of second intermetatarsal space, left foot, excision: Consistent with neuroma. C. Right foot, first toenail, removal: Fragments of unremarkable nail. No evidence of fungal organisms. See comment. ADDIE/ 06/17/2024 COMMENT C. GMS stain with matched control was used in the evaluation of this case. Case has been reviewed in consultation with Dr. Costa who concurs with the above diagnosis. IDC:SJ MICROSCOPIC DESCRIPTION Slides are reviewed. GROSS DESCRIPTION A. Received in fixative is one container labeled with the patient's name and designated Neuroma of second and third metatarsal space, left foot. The specimen consists of multiple pieces of evo-vrn-nohbyo soft tissue measuring in aggregate 2.5 x 2.2 x 0.3cm. The entire specimen is submitted in one cassette. B. Received in fixative is one container labeled with the patient's name and designated Neuroma of third intermetatarsal space, left foot . The specimen consists of multiple pieces of tih-qcu-ewryjz soft tissue measuring in aggregate 2.0 x 2.0 x 0.3cm. The entire specimen is submitted in one cassette. C. Received in fixative is one container labeled with the patient's name and designated Right first toe nail. The specimen consists of a gonzalez nail measuring 1.7 x 2.0 x 0.3cm. The specimen is serially sectioned and submitted entirely in one cassette after decalcification. SJ.mr 06/16/2024 TC:5 CPT:94921a0,07351
--- NOTE | 2024-06-13 06:17 | PRE.ANES_ITS ---
ASA Classification* ASA Classification ASA Classification: 2 Assessment & Plan Anesthesia* Anesthesia Assessment Anesthesia Assessment: Discussed sedation and/or anesthesia options, risks, benefits, and alternatives with patient/parents/legal guardian/POA. Questions invited. The patient/parents/legal guardian/POA seems to understand and agrees to proceed with anesthesia plan. Reviewed the physical assessment, medical history, allergy history and patient home medications list prior to surgery/procedure/anesthetic and documented any changes. Performed airway and anesthesia risk assessments. Anesthesia Type Anesthesia Type: MAC (see written pre anesthesia record for full assessment) Anesthesia Focused Assessment* Airway Assessment Mouth opens: >3 cm Mallampati Score: II Focused Labs Anesthesia Preop lab: CBC WBC 7.0 K/mm3 (4.4-11.0) 06/04/24 09:36 RBC 4.21 M/mm3 (4.2-5.4) 06/04/24 09:36 Hgb 13.1 g/dL (12.0-15.0) 06/04/24 09:36 Hct 40.7 % (37-47) 06/04/24 09:36 Plt Count 315 K/mm3 (150-450) 06/04/24 09:36 CHEMISTRY Potassium 3.9 mmol/L (3.5-5.1) 06/04/24 09:36 Sodium 140 mmol/L (136-145) 06/04/24 09:36 BUN 23 mg/dL (7-18) H 06/04/24 09:36 Creatinine 0.77 mg/dL (0.55-1.02) 06/04/24 09:36 Glucose 97 mg/dL (74-106) 06/04/24 09:36 POC Glucose 102 mg/dL (70-110) 06/12/19 14:16 TSH 1.58 uIU/mL (0.358-3.74) 07/15/20 14:03 COAG Pre-Assessment Diagnosis/Proposed Procedure Planned Operative Procedure(s): EXCISION OF LEFT FOOT SECOND AND THIRD INTERMETATARSAL SPACE NEUROMAS WITH PHENOL AND ALCHOLOL MATRIXECTOMY OF RIGHT FIRST TOENAIL Anesthesia History 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 When Was Last Pacemaker Check QUESTION #4 FULL TEXT: You/Your Family Experience fever (hyperthermia) with Anesthesia Last Oral Intake Last Oral intake: Last Oral Intake NPO since Meds taken in AM with sips of water? Meds patient instructed to take am of surgery PONV PONV - duplicating machine operator: PONV - duplicating machine operator Female Yes 06/10/24 15:25 HX of Motion Sickness No 06/10/24 15:25 HX of N/V After Surgery No 06/10/24 15:25 Non-Smoker Yes 06/10/24 15:25 Duration of Surgery greater Yes 06/10/24 15:25 than 60 minutes Number of Risk Factors 3 06/10/24 15:25 PONV Score Moderate Risk 06/10/24 15:25 Height & Weight Height & Weight: Anesthesia: Height & Weight Height 5 ft 6 in 06/12/24 08:54 Weight: 104.326 kg 06/12/24 08:54 Respiratory Assessment Respiratory Assessment - duplicating machine operator: Respiratory Tract Infection Hx - duplicating machine operator Hx Respiratory Tract Infection No 06/10/24 15:25 STOP Sleep Apnea STOP Sleep Apnea - duplicating machine operator: STOP Sleep Apnea - duplicating machine operator Hx Hypertension Yes: CONTROLLED WITH MEDS 06/10/24 15:25 Hx Sleep Apnea No 06/10/24 15:25 CPAP BIPAP Do you snore loudly (louder No 06/10/24 15:25 than talking or can be heard Do you often feel tired/ No 06/10/24 15:25 fatigued/ sleepy during daytime? Has anyone observed you stop No 06/10/24 15:25 breathing during sleep? STOP Results Negative 06/10/24 15:25 QUESTION #5 FULL TEXT : Do you snore loudly (louder than talking or can be heard through closed doors)? 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 Specify any problems Hx of Preganancy in last 3 No 06/10/24 15:25 Months Nurse Filling Out Transfusion [email or web address] 06/10/24 15:25 & Questions: Date: 06/10/24 06/10/24 15:25 Time: 1506/10/24 15:25 Patient unable to answer at this time (ie. 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 History - duplicating machine operator: /Reproductive Hx- duplicating machine operator Hx Now Gestational Age (in weeks): EDC: Hx Hx Para Hx Section SAB Active Medications Active Medications: Current Medications Generic Name Dose Route Start Last Admin Trade Name Freq PRN Reason Stop Dose Admin Cefazolin Sodium 2 gm/ Sodium 110 mls @ 150 mls/hr 06/13/24 07:30 Chloride IV 06/13/24 08:13 PREOP ONE Lactated Ringer's 1,000 mls @ 15 mls/hr 06/13/24 06:15 IV .Q48H LETHA PFSH Medical History Wears glasses Arthritis Gastric reflux Non-smoker History of edema Cardiology follow-up encounter [place] Cardiomyopathy Elevated blood pressure reading without diagnosis of hypertension Chest pain Pre-syncope Home Medications ?Medication ?Instructions ?Recorded ?Last Taken ?Type atorvastatin 20 mg tablet 20 mg PO QHS #90 tabs 08/14/20 Unknown Rx carvedilol 3.125 mg tablet 3.125 mg PO BID #180 tabs 08/14/20 Unknown Rx [id number] 300 mcg-K 60 1 tab PO DAILY 07/05/21 Unknown History mcg-lycop 600 mcg-lutein 300 mcg tablet (Centrum Silver Men) omeprazole 20 mg capsule,delayed 20 mg PO DAILY 07/05/21 Unknown History release turmeric 400 mg capsule 400 mg PO BID 07/05/21 Unknown History lisinopril 10 1 tab PO DAILY #90 tabs 08/10/21 Unknown Rx mg-hydrochlorothiazide 12.5 mg tablet aspirin 81 mg capsule 81 mg PO DAILY 06/10/24 Unknown History Allergy/AdvReac Type Severity Reaction Status Date / Time aspirin AdvReac Other Verified 06/10/24 15:24 Family History Mother Arrhythmia Brother Rheumatic fever Surgical History S/P trigger finger release S/P laparoscopic cholecystectomy History of left heart catheterization (06/12/19) Social History Smoking Status: Never smoker Review of Systems (Anesthesia) ROS Narrative System reviewed and no additional complaints, except as documented.
--- NOTE | 2024-06-13 06:17 | PRE.ANES_ITS ---
ASA Classification* ASA Classification ASA Classification: 3 Assessment & Plan Anesthesia* Anesthesia Assessment Anesthesia Assessment: Discussed sedation and/or anesthesia options, risks, benefits, and alternatives with patient/parents/legal guardian/POA. Questions invited. The patient/parents/legal guardian/POA seems to understand and agrees to proceed with anesthesia plan. Reviewed the physical assessment, medical history, allergy history and patient home medications list prior to surgery/procedure/anesthetic and documented any changes. Performed airway and anesthesia risk assessments. Anesthesia Type Anesthesia Type: General (see written pre anesthesia record for full assessment) Anesthesia Focused Assessment* Airway Assessment Mouth opens: >3 cm Mallampati Score: II Focused Labs Anesthesia Preop lab: CBC WBC 7.0 K/mm3 (4.4-11.0) 06/04/24 09:36 RBC 4.21 M/mm3 (4.2-5.4) 06/04/24 09:36 Hgb 13.1 g/dL (12.0-15.0) 06/04/24 09:36 Hct 40.7 % (37-47) 06/04/24 09:36 Plt Count 315 K/mm3 (150-450) 06/04/24 09:36 CHEMISTRY Potassium 3.9 mmol/L (3.5-5.1) 06/04/24 09:36 Sodium 140 mmol/L (136-145) 06/04/24 09:36 BUN 23 mg/dL (7-18) H 06/04/24 09:36 Creatinine 0.77 mg/dL (0.55-1.02) 06/04/24 09:36 Glucose 97 mg/dL (74-106) 06/04/24 09:36 POC Glucose 102 mg/dL (70-110) 06/12/19 14:16 TSH 1.58 uIU/mL (0.358-3.74) 07/15/20 14:03 COAG Pre-Assessment Diagnosis/Proposed Procedure Planned Operative Procedure(s): EXCISION OF LEFT FOOT SECOND AND THIRD INTERMETATARSAL SPACE NEUROMAS WITH PHENOL AND ALCHOLOL MATRIXECTOMY OF RIGHT FIRST TOENAIL Anesthesia History 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 When Was Last Pacemaker Check QUESTION #4 FULL TEXT: You/Your Family Experience fever (hyperthermia) with Anesthesia Last Oral Intake Last Oral intake: Last Oral Intake NPO since Meds taken in AM with sips of water? 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 Female Yes 06/10/24 15:25 HX of Motion Sickness No 06/10/24 15:25 HX of N/V After Surgery No 06/10/24 15:25 Non-Smoker Yes 06/10/24 15:25 Duration of Surgery greater Yes 06/10/24 15:25 than 60 minutes Number of Risk Factors 3 06/10/24 15:25 PONV Score Moderate Risk 06/10/24 15:25 Height & Weight Height & Weight: Anesthesia: Height & Weight Height 5 ft 6 in 06/12/24 08:54 Weight: 104.326 kg 06/12/24 08:54 Respiratory Assessment Respiratory Assessment - inspector grain mill products: Respiratory Tract Infection Hx - inspector grain mill products Hx Respiratory Tract Infection No 06/10/24 15:25 STOP Sleep Apnea STOP Sleep Apnea - inspector grain mill products: STOP Sleep Apnea - inspector grain mill products Hx Hypertension Yes: CONTROLLED WITH MEDS 06/10/24 15:25 Hx Sleep Apnea No 06/10/24 15:25 CPAP BIPAP Do you snore loudly (louder No 06/10/24 15:25 than talking or can be heard Do you often feel tired/ No 06/10/24 15:25 fatigued/ sleepy during daytime? Has anyone observed you stop No 06/10/24 15:25 breathing during sleep? STOP Results Negative 06/10/24 15:25 QUESTION #5 FULL TEXT : Do you snore loudly (louder than talking or can be heard through closed doors)? 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 Specify any problems Hx of Preganancy in last 3 No 06/10/24 15:25 Months Nurse Filling Out Transfusion [email or web address] 06/10/24 15:25 & Questions: Date: 06/10/24 06/10/24 15:25 Time: 1506/10/24 15:25 Patient unable to answer at this time (ie. 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: /Reproductive Hx- inspector grain mill products Hx Now Gestational Age (in weeks): EDC: Hx Hx Para Hx Section SAB Active Medications Active Medications: Current Medications Generic Name Dose Route Start Last Admin Trade Name Freq PRN Reason Stop Dose Admin Cefazolin Sodium 2 gm/ Sodium 110 mls @ 150 mls/hr 06/13/24 07:30 Chloride IV 06/13/24 08:13 PREOP ONE Lactated Ringer's 1,000 mls @ 15 mls/hr 06/13/24 06:15 IV .Q48H LETHA PFSH Medical History Wears glasses Arthritis Gastric reflux Non-smoker History of edema Cardiology follow-up encounter [place] Cardiomyopathy Elevated blood pressure reading without diagnosis of hypertension Chest pain Pre-syncope Home Medications ?Medication ?Instructions ?Recorded ?Last Taken ?Type atorvastatin 20 mg tablet 20 mg PO QHS #90 tabs 08/14/20 Unknown Rx carvedilol 3.125 mg tablet 3.125 mg PO BID #180 tabs 08/14/20 Unknown Rx [id number]-[id number] 300 mcg-K 60 1 tab PO DAILY 07/05/21 Unknown History mcg-lycop 600 mcg-lutein 300 mcg tablet (Centrum Silver Men) omeprazole 20 mg capsule,delayed 20 mg PO DAILY 07/05/21 Unknown History release turmeric 400 mg capsule 400 mg PO BID 07/05/21 Unknown History lisinopril 10 1 tab PO DAILY #90 tabs 08/10/21 Unknown Rx mg-hydrochlorothiazide 12.5 mg tablet aspirin 81 mg capsule 81 mg PO DAILY 06/10/24 Unknown History Allergy/AdvReac Type Severity Reaction Status Date / Time aspirin AdvReac Other Verified 06/10/24 15:24 Family History Mother Arrhythmia Brother Rheumatic fever Surgical History S/P trigger finger release S/P laparoscopic cholecystectomy History of left heart catheterization (06/12/19) Social History Smoking Status: Never smoker Review of Systems (Anesthesia) ROS Narrative System reviewed and no additional complaints, except as documented.
[2024-06-13 06:21] VITALS: BP 101/69; PULSE 65; RESP 16; TEMP 37; O2SAT 97; BMI 39.8
[2024-06-13] MEDS: Lactated Ringers 1,000 ML 15 ML IV (06:24)
[2024-06-13] MEDS: Cefazolin 2 GM in 0.9% Normal Saline (100mL Bag) 100 ML IV (07:25)
[2024-06-13] MEDS: Bupivacaine Mpf 0.5% 30 ML VIAL (08:00)
[2024-06-13] MEDS: Lidocaine 1% /Epi 1:100 (20ml) 20 ML Vial (08:10)
[2024-06-13] MEDS: BACITRACIN/POLYMYXIN B 15 GM Tube 1 APPLIC (08:49)
--- NOTE | 2024-06-13 08:57 | PCM.OPRPT ---
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 Excision of left 2nd intermetatarsal neuroma 2. Excision of left 3rd intermetatarsal neuroma 3. Phenol and alcohol matricectomy right 1st toenail Surgeon: Noel Chahal small package and bundle sorter clerk: Type of Anesthesia: Local and MAC Specimen's removed: 1. Exicised left 2nd intermetatarsal space neuroma sent to pathology 2. Excised left 3rd intermetatarsal space neuroma sent to pathology 3. Right 1st toenail sent to pathology Estimated Blood Loss (mL): 5mL Description of Procedure: Indications: This is a 68 year old female with history of chronic left foot pain at level of the 2nd and 3rd intermetatarsal/digital spaces. She has undergone conservative / nonsurgical care but continues to have significant limiting pain. Also has chronic painful thickened right 1st toenail she would like permanently removed. She elected to proceed with surgical intervention of excision of the left 2nd and 3rd intermetatarsal space neuromas (advised patient she would have numbness to the plantar foot) and right 1st toenail removal phenol and alcohol matricectomy. This was discussed with her in great detail. She agreed with this plan, reviewed all of the possible benefits vs risks, goal, expectations, and typical healing time. She was able to repeat these back, all of her questions were answered. The consent forms were reviewed with her and she agreed signed them. No guarantees were given nor implied. No warranties were given. Operative procedure: The patient was brought back to the operating room and was placed on the operating room table in the supine position. Patient was carefully secured the the operating room table with a safely belt around her waist. A time out was performed and the patient was properly identified and the surgical plan was confirmed. The patient received 2g of IV Cefazolin for antibiotic prophylaxis. A well padded pneumatic tourniquet was applied around the left ankle. The patient did receive MAC anesthesia per the anesthesiologist. A total of 20mL of 0.5% Bupivacaine plain was given as a local block to the 2nd and 3rd intermetatarsal spaces on the left foot and 10mL to the right 1st ray on the right foot after the overlying skin was cleansed with 70% Isopropyl alcohol. The left foot was scrubbed, prepped, draped in the usual aseptic fashion. The left foot was exsanguinated using elevation for 3 minutes and the ankle pneumatic tourniquet was inflated to 250mmHg. Excision of left 2nd intermetatarsal neuroma: Attention was directed to the 2nd intermetatarsal space, where a longitudinal incision was made using a 15 blade on the dorsal aspect. Careful dissection was completed down to the deep transverse metatarsal ligament which was released in sharp fashion. A large plantar neuroma was identified localized to the site, which was yellow and degenerative. There were findings consistent with perineural fibrosis to the lesion. This was carefully dissected out, removing the proximal nerve and also the distal branches to the 2nd and 3rd toes at the base of the toes. This was passed from the surgical site and was sent to pathology for further evaluation. The proximal nerve stump was healthy, viable and was carefully buried into the intrinsic musculature of the foot. All other tissue to the site appeared healthy and viable with no other abnormality present to this site. The site was flushed out with copious amounts of normal saline solution. The subcutaneous tissue was reapproximated using 3-0 Vicryl. The skin was reapproximated using 4-0 Monocryl. Excision of left 3rd intermetatarsal neuroma: Attention was directed to the 3rd intermetatarsal space, where a longitudinal incision was made using a 15 blade on the dorsal aspect. Careful dissection was completed down to the deep transverse metatarsal ligament which was released in sharp fashion. A plantar neuroma was identified localized to the site, which was yellow, degenerative and had significant fatty tissue around it. There were findings consistent with perineural fibrosis to the lesion. This was carefully dissected out, removing the proximal nerve and also the distal branches to the 3rd and 4th toes at the base of the toes. This was passed from the surgical site and was sent to pathology for further evaluation. The proximal nerve stump was healthy, viable and was carefully buried into the intrinsic musculature of the foot. All other tissue to the site appeared healthy and viable with no other abnormality present to this site. The site was flushed out with copious amounts of normal saline solution. The subcutaneous tissue was reapproximated using 3-0 Vicryl. The skin was reapproximated using 4-0 Monocryl. An additional 10mL of 0.5% Bupivacaine plain as well as 4mL of 1% Lidocaine plain was given as a local nerve block around the surgical sites of the left foot for pain control. Cavilon was painted to the sutured skin edges and steristrips were applied across the sutures skin incision sites. All vital structures including all vital musculoskeletal and neurovascular structures were properly identified and protected/retracted as necessary. The pneumatic tourniquet was deflated (total tourniquet time was 51 minutes), and there was immediate return vascular flow to the foot, CFT < 2 seconds to all toes, normal temperature gradient, pedal pulses intact. Hemostasis was achieved. A dressing was applied which consisted of Betadine soaked adaptic, 4x4 gauze, kerlix, and mercedes bandage. Right 1st toenail phenol and alcohol matricectomy: The toe was cleansed with 70% Isopropyl alcohol. A digital tourniquet was applied to the base of the toe. The 1st toenail was avulsed using a hemostat, phenol was applied to the nail bed and root for 30 seconds x 3 applications. The site was flushed with copious amounts of 70% Isopropyl alcohol. The digital tourniquet was removed (total time was 7 minutes). There was immediate return of vascular flow to the toe with CFT < 2 seconds. A dressing was applied consisting of double antibiotic ointment, gauze and coban. The patient tolerated the above operative procedures well at the anesthesia well with no complication. The patient was transported to the recovery room with vital signs stable and in good condition. Post operative orders were placed. Post operative instructions were reviewed with her as well as with her friend who was here with her today. No weightbearing to the left forefoot, keep foot elevated for at least 50 minutes of every hour, keep dressing clean, dry and intact left foot and change dressing right 1st toe daily starting tomorrow. Prescription for Hydrocodone/acetaminophen 5mg/325mg was prescribed: 1-2 tabs PO q 6 hours PRN pain. She is to follow up with me within 1 week or sooner if needed. Grafts/Implants Used: None Complications None
[2024-06-13 09:00] VITALS: BP 101/69; BP 110/74; PULSE 71; RESP 16; TEMP 36.3; O2SAT 98
--- NOTE | 2024-06-13 09:02 | PCM.DC ---
Discharge Instructions Diet Discharge Diet: Light diet - advance as tolerated Activity Weight Bearing Status: No weight bearing (No weightbearing left foot) Keep extremity elevated above heart level: Operative Extremity (Keep left foot elevated using pillows for at least 50 minutes of every hour) Dressing / Incision Call your doctor if your incision/area has: Continuous Slow Oozing, Sudden Increased Bleeding and Foul Smelling Discharge Call your doctor if you observe: Fever of 101 or Higher, Shortness of breath, Chest pain, Increased palpitations (irregular heartbeat), Calf discomfort and Uncontrolled pain Change Dressing in: do not change dressing (do not change dressing left foot) Remove Dressing in: do not remove dressing (Keep left foot dressing clean, dry and intact. Change right 1st toe dressing daily using antibiotic ointment and gauze, cleanse/soak in soapy water for 5-10 minutes prior to application of dressing right 1st toe) Cleanse incision/area with: Keep Dressing Clean & Dry (Keep left foot dressing clean and dry) Follow Up Care Please Follow Up With: Noel Chahal DPM When: 1 week in office, sooner if needed Dr. Chahal cell: [phone] - ok to call if needed Test Results: Test results from this visit will be discussed in further detail at your follow-up appointment, if applicable. Discharge Plan Admission Attending Provider: Noel Chahal Primary Care Provider: Burt Talavera Instructions Print Language: Luxembourgish Discharge Orders/Prescriptions Prescriptions: New hydrocodone-acetaminophen 5-325 mg tablet 1 - 2 tab PO Q6H PRN (Reason: pain) 3 Days Qty: 20 0RF No Action Centrum Silver Men 300-600-300 mcg tablet 1 tab PO DAILY turmeric 400 mg capsule 400 mg PO BID omeprazole 20 mg capsule,delayed release(DR/EC) 20 mg PO DAILY aspirin 81 mg capsule 81 mg PO DAILY atorvastatin 20 mg tablet 20 mg PO QHS Qty: 90 3RF carvedilol 3.125 mg tablet 3.125 mg PO BID Qty: 180 3RF lisinopril-hydrochlorothiazide 10-12.5 mg tablet 1 tab PO DAILY Qty: 90 3RF Referrals / Follow Up: Burt Talavera MD [Primary Care Provider] - Disposition Disposition (needs filled in before D/C Order can be placed): Home, Self Care
[2024-06-13 09:05] VITALS: BP 101/69; BP 118/74; PULSE 68; RESP 16; O2SAT 96
[2024-06-13 09:10] VITALS: BP 101/69; BP 121/76; PULSE 65; RESP 16; TEMP 36.3; O2SAT 99
--- NOTE | 2024-06-13 09:41 | PCM.POST.ANE ---
Anesthesia: Postop Eval I Current Vital Signs Temperature: 97.4 F Pulse Rate: 70 Blood Pressure: 110/74 Respiratory Rate: 18 Pulse Ox: 95 Oxygen Delivery Method: Room Air Assessment Airway patent: Yes Spontaneous unlabored respirations: Yes Mental status: Awake and Calm nausea: No Vomiting: No Anesthesia Complication: No Fluid Hydration Crystalloid volume administer (ml): 1,100 Total IV fluid infused: 1,100 Progress Note Anesthesia document: Postop Eval 1 completed: Yes
[2024-06-13 09:42] VITALS: BP 110/74; PULSE 70; RESP 18; TEMP 36.3; O2SAT 95
[2024-06-13 10:20] VITALS: BP 101/69
--- NOTE | 2024-06-13 15:33 | POSTOPAN2_ITS ---
Anesthesia Postop Eval I Sum Postop Eval Completion status Anesthesia document: Postop Eval 1 completed: Yes Anesthesia Postop Eval I Summary Anesthesia Postop Eval I Summary: Anesthesia Postop Eval I: Assessment Summary Airway patent Yes 06/13/24 09:42 VENDING [email or web address] Spontaneous unlabored Yes 06/13/24 09:42 VENDING [email or web address] respirations Mental status Awake,Calm 06/13/24 09:42 VENDING [email or web address] nausea No 06/13/24 09:42 VENDING [email or web address] Vomiting No 06/13/24 09:42 VENDING [email or web address] Anesthesia Postop Eval I: Fluid Summary Crystalloid volume administer 1,100 06/13/24 09:42 VENDING [email or web address] (ml) Colloids volume administered ( ml) Blood Product volume administered (ml) Total IV fluid infused 1,100 06/13/24 09:42 VENDING [email or web address] Anesthesia Postop Eval I: Summary Notes Anesthesia Complication No 06/13/24 09:42 VENDING [email or web address] Anesthesia Complication Comment: Post-operative progress note Anesthesia: Postop Eval II Evaluation Mental status: Awake and Calm Pain Level: 1 nausea: No Vomiting: No Complications Anesthesia Complication: No
--- NOTE | 2024-06-13 15:33 | PCM.POSTANE2 ---
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
== END 2024-06-13 10:22 | disposition home or self-care (01) ==
LOC: SDC 05:57 → AC 05:57
PROVIDERS: PCP Family Medicine; Referring Provider Podiatrist; Visit Provider Podiatrist
PROC: (CPT 28080; principal; 2024-06-13 07:15)
DX: G57.82 Other specified mononeuropathies of left lower limb (principal); I10 Essential (primary) hypertension; Z90.49 Acquired absence of other specified parts of digestive tract; M62.838 Other muscle spasm
CPT/HCPCS: 28080 ×2; 11750; 01470; 88304; 88312; J7120; J2405

== ENCOUNTER → 2024-07-14 | Outpatient (CLI) | payer MEDICARE, OTHER, SELFPAY ==
--- NOTE | 2024-07-14 11:01 | VDLE_ITS ---
Reason For Study: Bilateral leg pain RIGHT LEFT GSV is normal. GSV is normal. CFV is compressible, spontaneous, phasic, CFV is compressible, spontaneous, phasic, competent and demonstrates normal competent, and demonstrates normal augmentation. augmentation. FV is compressible, spontaneous, phasic, FV is compressible, spontaneous, phasic, competent and demonstrates normal competent and demonstrates normal augmentation. augmentation. POP V is compressible, spontaneous, phasic, POP V is compressible, spontaneous, phasic, competent and demonstrates normal competent and demonstrates normal augmentation. augmentation. T/P Trunk is compressible. T/P Trunk is compressible. PTV is compressible. PTV is compressible. RT PerV is compressible. LT PerV is compressible. Procedure This is a venous duplex using B-mode, color flow and spectral Doppler. Exam performed in department. A preliminary report was called and/or faxed to Dr. Chahal and PCP: Dr. Talavera. VL/Venous Duplex US - Da Extrem Interpretation Summary Deep veins of the bilateral lower extremities are patent and compressible segme ntally. There is no evidence of bilateral lower extremity deep vein thrombosis. The bilateral great saphenous veins appear patent and compressible segmentally. Ordering Physician: Noel Chahal Referring Physician: Burt Talavera Performed By: Saida Kelsey RVT
== END | disposition home or self-care (01) ==
LOC: CVS 10:54
PROVIDERS: PCP Family Medicine; Referring Provider Podiatrist; Visit Provider Podiatrist
DX: M79.661 Pain in right lower leg (principal); M79.662 Pain in left lower leg
CPT/HCPCS: 93970

== ENCOUNTER → 2024-08-18 | Outpatient (CLI) | payer MEDICARE, OTHER, SELFPAY | END | disposition home or self-care (01) | PROVIDERS: PCP Family Medicine; Referring Provider Family Medicine; Visit Provider Family Medicine | DX: M79.604 Pain in right leg (principal) | CPT/HCPCS: 73564 ==

== ENCOUNTER → 2024-10-10 | Outpatient (CLI) | payer MEDICARE, OTHER, SELFPAY ==
--- NOTE | 2024-10-10 09:09 | BI_ITS ---
MAMMOGRAPHY - BILATERAL SCREENING 3-D TOMOSYNTHESIS REASON FOR EXAM: Female, 68 years old. Routine screening PERTINENT HISTORY: Mother and sister with breast cancer.. TECHNIQUE: 2-D mammograms and 3-D Tomosynthesis of the breast (s) were performed. CAD was performed. COMPARISON: 08/30/2022 FINDINGS: The breast composition is composed of scattered fibroglandular density. Scattered benign calcifications are seen. No dense spiculated masses or suspicious microcalcifications are identified. No architectural distortion is identified. There is no skin thickening or retraction. There has been no significant change since the prior study. BI/SCRN MAMM (CAD)W/JERRY BILAT IMPRESSION: No mammographic signs of malignancy. Routine yearly mammograms recommended. ASSESSMENT CATEGORY: BIRADS Category 1: Negative. A letter regarding these results will be sent to the patient by the facility within 30 days. FOLLOW UP RECOMMENDATION: Yearly follow up mammogram recommended. (A) Approximately 10% of breast cancers are not detected by mammography. A normal mammogram should not delay biopsy of a clinically suspicious abnormality. Electronically Signed: Jayesh Flowers MD at 10:29 EST ,
== END | disposition home or self-care (01) ==
LOC: OPBI 09:07
PROVIDERS: PCP Family Medicine; Referring Provider Family Medicine; Visit Provider Family Medicine
DX: Z12.31 Encounter for screening mammogram for malignant neoplasm of breast (principal); Z80.3 Family history of malignant neoplasm of breast
CPT/HCPCS: 77063; 77067

== ENCOUNTER 2024-10-15 10:54 | Outpatient (CLI) | payer MEDICARE, OTHER, SELFPAY ==
[2024-10-15 15:43] LABS: Creatinine, Serum 0.71 mg/dL (0.55-1.02); EST Glomerular Filtration Rate 86 mL/min (>60); Est Glom Filt Rate - Afr Amer 104 mL/min (>60)
== END 2024-10-15 23:59 | disposition home or self-care (01) ==
LOC: MFPLAB 10:59
PROVIDERS: PCP Family Medicine; Referring Provider Orthopaedic Surgery; Visit Provider Orthopaedic Surgery
DX: Z79.1 Long term (current) use of non-steroidal anti-inflammatories (NSAID) (principal)
CPT/HCPCS: 36415; 82565

== ENCOUNTER 2024-11-18 11:30 | Outpatient (RCR) | payer MEDICARE, OTHER, SELFPAY ==
--- NOTE | 2024-10-22 10:19 | HP.PTEVAL_ITS ---
Patient's Visit Information Visit Information Visit Information: SERENE LANGE is a 68 year old F referred to Physical Therapy by Dr. Donell Pacheco DO with a diagnosis of R DJD, lumbar spondylosis and DDD. Date of Evaluation: 10/20/24 Physical Therapist: Per Dia DPT Visit Plan Frequency: 2x /Week Duration: 4 Weeks Plan: In aquatic settin) B hip and core strengthening 2) R knee ROM, HS stretching, knee flexion stretching. 3) lumbar ROM as tolerated. Subjective Subjective: Pt. is here today for her initial evaluation with diagnosis of R DJD, lumbar spondylosis and DDD. Pt. reports having increased R medial knee pain. Pt. reports that she has had LBP for years, but has recently developed more medial R knee pain. She reports the pain started in her medial posterior knee, but now is more at he medial knee. Pt. denies N/T and no sudden weakness in either LE. Pt. reports increased pain after prolonged sitting/standing. She r eports having increased R knee pain and LBP after prolonged car rides. Pt. reports pain with initial standing, but does loosen up as she does some things. Pt. is hopeful to reduce her pain of her R leg and low back pain. Pt. does reports mornings are tough with increased stiffness and LBP. Pt. does goes back and forth to [place] to visit her family. She has to take several breaks due to pain in her leg. Pain R knee: Pain Intensity (Out of 10): 4 Pain Intensity Range: 2 and 6 Lumbar spine: Pain Intensity (Out of 10): 2 Pain Intensity Range: 0 and 4 Comment: R side Objective Objective: POSTURE: Pt. has decent posture in stance. Pt. has no major flexed posture, decent lumbar lordosis in stance. PALPATION: Pt. has some mild tenderness at her medial joint line or her R knee. Pt. has some mild tenderness at R side of lumbar spine. NEURO: Pt. has normal sensation in BLEs, except slight decreased sensation and medial R calf. Pt. is able to rise on heels and toes without myotomal loss. ROM: LUMBAR SPINE: flexion min loss NE, ext mod loss NE, SB min loss bilat mild increase NW, rotation min loss bilat increase NW. Pt. has some mild tightness in B HS. R knee: 0-5-110deg. L knee 0-0-121deg. MMT: Pt. has symmetrical strength in B distal LEs. Pt. does have some weakness in B hips and core strength. R hip: flexion 15.6#, abd 13.1#, ext 11.4#. L hip: flexion 17.8#, abd 13.9#, ext 14.5#. Core strength: poor. GAIT: Pt. ambulates with out AD. She does have a slight antalgic like pattern during R stance, but not marked pain noted. STAIRS: Pt. is able to complete with reciprocal pattern, but does have some slight increase in R medial knee pain. Not much back pain with stairs. Special Tests L/S Slump test left side: Negative L/S Slump test right side: Negative L/S Left Straight Leg Raise: Negative L/S Right Straight Leg Raise: Negative Lumbar Standing: Flexion - Mechanical Response: No effect Lumbar Standing: Flexion - Symptoms During Testing: Increases Lumbar Standing: Flexion - Symptoms After Testing: Worse Lumbar Standing: Extension - Mechanical Response: No effect Lumbar Standing: Extension - Symptoms During Testing: No effect Lumbar Standing: Extension - Symptoms After Testing: No effect Lumbar Standing: Right Side Glides - Mechanical Response: No effect Lumbar Standing: Right Side Cannon - Symptoms During Testing: No effect Lumbar Standing: Right Side Cannon - Symptoms After Testing: No effect Lumbar Standing: Left Side Cannon - Mechanical Response: No effect Lumbar Standing: Left Side Cannon - Symptoms During Testing: No effect Lumbar Standing: Left Side Cannon - Symptoms After Testing: No effect Lumbar Lying: Flexion - Mechanical Response: No effect Lumbar Lying: Flexion - Symptoms During Testing: Decreases Lumbar Lying: Flexion - Symptoms After Testing: No better Lumbar Lying: Extension - Mechanical Response: No effect Lumbar Lying: Extension - Symptoms During Testing: No effect Lumbar Lying: Extension - Symptoms After Testing: No effect Balance/Special Test Scores Oswestry Low Back Score: 11 Lower Extremity Functional Score: 40 Goals Goal 1:: LTG: Pt. to be I with HEP. Goal Time Frame: 4-6 Weeks Goal 2:: LTG: Pt. to be able to walk unlimited distances without increase in R knee or LBP. Goal Time Frame: 4-6 Weeks Goal 3:: LTG: Pt. to have increased core and hip strength by 1/2 grade throughou t in order to reduce stress to lumbar spine and R knee. Goal Time Frame: 4-6 Weeks Goal 4:: LTG: Pt. to report decreased pain/stiffness with initial standing after prolonged sitting ie after driving. Goal Time Frame: 4-6 Weeks Goal 5:: LTG: Pt. to negotiate steps with 1 HR with reciprocal pattern without increase in R knee or low back pain. Goal Time Frame: 4-6 Weeks Rehabilitation Potential Physical Therapy Diagnosis: Pt. has signs and symptoms consistent with R DJD, lumbar spondylosis and DDD. Pt. has marked hip and core weakness as well at limited R knee ROM. Pt. would benefit from PT to address her weakness and limited ROM progressing back to all recreational and household activities. Rehabilitation Potential: Excellent Anticipated Interventions Patient/Client Instruction: Educate patient on: Condition, Plan of Care, Risk Factors and Benefits of Fitness Program For the Purpose of:: To improve decision making, To facilitate caregiver knowledge, To improve self management, To prevent re-injury and To improve ability to perform tasks related to life management Therapeutic Exercise to Include: Strength training, Power training, Gait and locomotor training, In an aquatic setting, Passive ROM, Active ROM, Dynamic Lumbar Stabilization and Mak Exercises For the Purpose of:: To decrease pain, To increase ROM, To improve nutrient delivery to tissue, To increase oxygenation perfusion, To improve ability to perform ADL's, To increase tolerance to activity/condition/position, To improve health of tissue, To decrease soft tissue restriction, To increase flexibility/ROM, To improve endurance, To improve balance, To reduce risk of recurrence, To improve safety and To improve health and function Text: Thank you for the opportunity to evaluate your patient. For Medicare and Medicare HMO plans, please review the plan of care and approve it. It will need to be FAXED BACK to us at [phone] for Medicare purposes. For Medicare only, by signing this I certify the plan of care. Please let me know if there are questions or concerns regarding this plan of care. Physician Signature: Date:
--- NOTE | 2024-11-18 15:22 | HP.PTDCSUM ---
Discharge Summary D/C summary: It has been my pleasure to treat SERENE LANGE referred by Dr. Donell Pacheco DO, with the diagnosis of R DJD, lumbar spondylosis and DDD for a total of 9 visit(s). Discharge Date: 11/18/24 Please see the following information for a summary of their discharge status. Subjective Subjective: Pt. reports overall she felt better in the pool, but is still having some issues with the medial aspect of her R knee. Pt. reports her pain is fine while she is active, but has increased pain with driving. Her biggest issue is with driving and sleeping. She reports increased medial R knee pain. Pt. is going on vacation later this week for the next 7 weeks. Pain R knee: Pain Intensity (Out of 10): 3 Lumbar spine: Pain Intensity (Out of 10): 0 Overall Improvement % Improvement: 50 Objective Objective/Function: ROM: R knee: 0-0-121deg. PT. has some mild tenderness at end range extension, tightness noted with flexion. MMT: Pt. has good strength throughout her knee and LE. Pt. does have increased symptoms. with Antonia and with disco testing. Pt. report that her biggest pain is with moving her foot from the gas to the brake pedals in her car. Ie twisting her knee into a bit of valgus and and tibial ER position. I was able to replicate her pain with similar symptoms. At this point in time I would suggest that she follow up with physician since she is going on vacation and might benefit from an injection or some pain modulating procedure. Goals Goal 1:: LTG: Pt. to be I with HEP. Goal Progress: Goal Met Goal 2:: LTG: Pt. to be able to walk unlimited distances without increase in R knee or LBP. Goal Progress: Goal Met Goal 3:: LTG: Pt. to have increased core and hip strength by 1/2 grade throughout in order to reduce stress to lumbar spine and R knee. Goal Progress: Goal Met Goal 4:: LTG: Pt. to report decreased pain/stiffness with initial standing after prolonged sitting ie after driving. Goal Progress: Progressing Goal 5:: LTG: Pt. to negotiate steps with 1 HR with reciprocal pattern without increase in R knee or low back pain. Goal Progress: Progressing Plan Plan: Pt. is going on vacation for 2 months and will be DC from PT at this point in time. Pt. has had some improvement, but is still having some issues. D/C Information d/c sentence: If there are questions or concerns regarding this patient's physical therapy, please feel free to call me at [phone]. Thank you for the referral of this patient. Sincerely, Per Sweeney Sipos, DPT Balance/Gait/Functional tests Balance/Special Test Scores Oswestry Low Back Score: 7 Lower Extremity Functional Score: 40 Improvement % Improvement: 50
== END 2024-11-18 19:00 | disposition home or self-care (01) ==
LOC: PT 11:30
PROVIDERS: PCP Family Medicine; Referring Provider Orthopaedic Surgery; Visit Provider Orthopaedic Surgery
DX: M17.11 Unilateral primary osteoarthritis, right knee (principal); M43.06 Spondylolysis, lumbar region; M51.369 Other intervertebral disc degeneration, lumbar region without mention of lumbar back pain or lower extremity pain
CPT/HCPCS: 97113; 97161; 97530

== ENCOUNTER → 2025-03-10 | Outpatient (CLI) | payer MEDICARE, OTHER, SELFPAY ==
--- NOTE | 2025-03-10 15:42 | MRI_ITS ---
PROCEDURE: LOWER EXT JOINT ONLY (ROUTINE) 03/10/2025 REASON FOR EXAM: PAIN TECHNIQUE: MRI of the right lower Extremity. Multiplanar and multisequence images were obtained without IV contrast administration. COMPARISON: COMPARISON : None FINDINGS: Complex tear of the body and posterior horn of the medial meniscus with a predominant horizontal undersurface component. Small displaced meniscal flaps along the inferior gutter and along the posterior intercondylar notch abutting the posterior root. Increased intrasubstance signal in the anterior horn of the lateral meniscus without discrete tear. Intact anterior and posterior cruciate ligaments. Intact medial collateral ligament. Intact lateral collateral ligament complex. Intact extensor mechanism. Intact semimembranosus and pes anserinus tendons. Moderate diffuse chondral thinning along the patellar apex. Mild diffuse chondral thinning throughout the medial compartment with a full- thickness chondral defect along the middle 3rd of the medial femoral condyle measuring 6 x 12 mm. Lateral compartment cartilage is intact. Small joint effusion without significant synovitis. Negative for fracture or marrow replacement. Low-level degenerative marrow edema along the middle 3rd of the medial femoral condyle. Small Davies's cysts containing a couple chondral bodies. MRI/Lower Ext Joint Only (Routine) IMPRESSION: 1. Complex tear of the body and posterior horn of the medial meniscus with disp laced meniscal flaps as above. 2. Mild medial and patellofemoral compartment osteoarthritis. 3. Small joint effusion. 4. Davies's cyst with several small chondral bodies. Reading Location: [facility]
== END | disposition home or self-care (01) ==
LOC: MRI 15:25
PROVIDERS: PCP Family Medicine; Referring Provider Orthopaedic Surgery; Visit Provider Orthopaedic Surgery
DX: M17.11 Unilateral primary osteoarthritis, right knee (principal)
CPT/HCPCS: 73721

== ENCOUNTER → 2025-03-19 | Outpatient (CLI) | payer MEDICARE, OTHER, SELFPAY ==
[2025-03-19 10:45] LABS: Absolute Lymphocyte Count 2.05 X10^3/uL (0.83-4.51); Absolute Neutrophil Count 3.8 X10^3/uL (2.0-7.7); Basophil# 0.05 X10^3/uL; Basophil% 0.8 % (0-1); Eosinophil# 0.15 X10^3/uL; Eosinophils% 2.3 % (0-5); Hematocrit 38.2 % (37-47); Hemoglobin 12.5 g/dL (12.0-15.0); Lymphocyte # 2.05 X10^3/ul (0.83-4.51); Lymphocyte % 31.1 % (19-41); Mean Corp Hgb Conc 32.7 g/dL (32-36); Mean Corpuscular Hgb 31.9 pg (27.0-32.0); Mean Corpuscular Volume 97.4 fL (81-99); Mean Platelet Vol. 10.5 fl (6.2-12.0); Monocyte# 0.58 X10^3/uL; Monocyte% 8.8 % (0-10); NRBC Flagged by Analyzer 0 % (0-5); Neutrophil # 3.76 X10^3/uL (2.7-7.7); Neutrophil % 56.8 % (47-70); Platelet Count 325 K/mm3 (150-450); RBC Distribution Width CV 14.3 % (11.6-14.6); Red Blood Count 3.92 M/mm3 (4.2-5.4); White Blood Count 6.6 K/mm3 (4.4-11.0)
[2025-03-19 10:57] LABS: ALB/GLOB Ratio 1.4 RATIO (0.9-2.4); AST(SGOT) 24 U/L (<=31); Alanine Aminotransfer ALT/SGPT 18 U/L (<=34); Albumin, Serum 4.2 g/dL (3.4-4.8); Alkaline Phosphatase 96 U/L (35-104); Anion Gap 11 (5-15); BUN 21 mg/dL (4-19); BUN/Creat Ratio 29.5 RATIO (10-20); Calcium,Total 9.4 mg/dL (7.6-11.0); Carbon Dioxide 24.1 mmol/L (21.0-32.0); Chloride 106 mmol/L (98-108); Creatinine, Serum 0.71 mg/dL (0.70-1.20); EST Glomerular Filtration Rate 91 (>60); Glucose 94 mg/dL (70-99); Potassium 4.1 mmol/L (3.3-5.1); Protein, Total 7.2 g/dL (5.9-8.4); Sodium Level 141 mmol/L (133-145); Total Bilirubin 0.84 mg/dL (0.00-1.30)
[2025-03-19 11:30] LABS: Ferritin 118 ng/mL (22-378)
== END | disposition home or self-care (01) ==
LOC: MFPLAB 09:25
PROVIDERS: PCP Family Medicine
DX: Z01.818 Encounter for other preprocedural examination (principal)
CPT/HCPCS: 36415; 80053; 82728; 85025

== ENCOUNTER 2025-03-24 11:46 | Day surgery (SDC) | payer MEDICARE, OTHER, SELFPAY ==
--- NOTE | 2025-03-18 16:53 | PAT.ANE_ITS ---
Pre-Assessment Diagnosis/Proposed Procedure Planned Operative Procedure(s): RIGHT KNEE ARTHROSCOPY PARTIAL MENISCECTOMY Anesthesia History Anesthesia History - medical collections representative: Anesthesia History - medical collections representative Hx Hospitalization No 03/18/25 15:31 Any Problems With Anesthesia No 03/18/25 15:31 Cholinesterase deficiency No 03/18/25 15:31 You/Your Family Experience No 03/18/25 15:31 fever (hyperthermia) with Relationship Recent Exposure to Contagious No 01/28/25 08:53 Disease Does patient have nerve No 03/18/25 15:31 stimulator Patient instructed to have device shut off --Does patient have Pacemaker or ICD? When Was Last Pacemaker Check QUESTION #4 FULL TEXT: You/Your Family Experience fever (hyperthermia) with Anesthesia Last Oral Intake Last Oral intake: Last Oral Intake NPO since Meds taken in AM with sips of water? Meds patient instructed to take am of surgery PONV PONV - medical collections representative: PONV - medical collections representative Female Yes 03/18/25 15:31 HX of Motion Sickness No 03/18/25 15:31 HX of N/V After Surgery No 03/18/25 15:31 Non-Smoker Yes 03/18/25 15:31 Duration of Surgery greater Yes 03/18/25 15:31 than 60 minutes Number of Risk Factors 3 03/18/25 15:31 PONV Score Moderate Risk 03/18/25 15:31 Height & Weight Height & Weight: Anesthesia: Height & Weight Height 5 ft 6 in 01/28/25 08:53 Respiratory Assessment Respiratory Assessment - medical collections representative: Respiratory Tract Infection Hx - medical collections representative Hx Respiratory Tract Infection No 03/18/25 15:31 STOP Sleep Apnea STOP Sleep Apnea - medical collections representative: STOP Sleep Apnea - medical collections representative Hx Hypertension Yes: CONTROLLED WITH MED 03/18/25 15:31 Hx Sleep Apnea No 03/18/25 15:31 CPAP BIPAP Do you snore loudly (louder Yes 03/18/25 15:31 than talking or can be heard Do you often feel tired/ No 03/18/25 15:31 fatigued/ sleepy during daytime? Has anyone observed you stop No 03/18/25 15:31 breathing during sleep? STOP Results Positive 03/18/25 15:31 QUESTION #5 FULL TEXT : Do you snore loudly (louder than talking or can be heard through closed doors)? Tobacco Use History Tobacco Use History - medical collections representative: Tobacco Use History - medical collections representative Tobacco Use Smoking Status Never smoker 03/18/25 15:31 Hx Tobacco Use No 03/18/25 15:31 Years Smoking Packs Smoked per Day Smoking Cessation Date was within the last 15 years Hx Smoking Cessation Date Hx Smoking Cessation Counseling Hematologic Medial History Hematologic Hx - medical collections representative: Hematologic Medical Hx - toe lining closer Hx of Blood Transfusion No 03/18/25 15:31 Hx of Transfusion in last 3 No 03/18/25 15:31 Months Date of Last Transfusion (if within last 3 months) Ever experience any problems No 03/18/25 15:31 with transfusion(s)? Specify any problems Hx of Preganancy in last 3 No 03/18/25 15:31 Months Nurse Filling Out Transfusion DSCHRIBER 03/18/25 15:31 & Questions: Date: 03/18/25 03/18/25 15:31 Time: 15:32 03/18/25 15:31 Patient unable to answer at this time (ie. 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 History - medical collections representative: /Reproductive Hx- medical collections representative Hx Now No 03/18/25 15:31 Gestational Age (in weeks): EDC: Hx Hx Para Hx Section SAB No 03/18/25 15:31 PFSH Medical History (Updated 03/18/25 @ 15:42 by Lianne Rosas) Post-menopausal History of steroid therapy Fatty liver High cholesterol Back pain History of pain when walking History of echocardiogram History of stress test Wears glasses Arthritis Gastric reflux Non-smoker History of edema Cardiology follow-up encounter [place] Cardiomyopathy Elevated blood pressure reading without diagnosis of hypertension Home Medications ?Medication ?Instructions ?Recorded ?Last Taken ?Type atorvastatin 20 mg tablet 20 mg PO QHS #90 tabs 06/12/24 Rx carvedilol 3.125 mg tablet 3.125 mg PO BID #180 tabs 1 10/14/19 06/12/24 Rx [id number]-[id number] 300 mcg-K 60 1 tab PO DAILY 07/05/21 06/12/24 History mcg-lycop 600 mcg-lutein 300 mcg tablet (Centrum Silver Men) omeprazole 20 mg capsule,delayed 20 mg PO DAILY 06/12/24 History release turmeric 400 mg capsule 400 mg PO BID 07/05/2106/12 History lisinopril 10 1 tab PO DAILY #90 tabs 11/0 12/2606/12/24 Rx mg-hydrochlorothiazide 12.5 mg tablet aspirin 81 mg capsule 81 mg PO DAILY 06/10/2403/08 History cholecalciferol (vitamin D3) 125 20,000 unit PO DAILY 03/18/25 Unknown History mcg (5,000 unit) tablet (Vitamin D3) Allergy/AdvReac Type Severity Reaction Status Date / Time aspirin AdvReac Other Verified 03/18/25 15:26 Family History Mother Arrhythmia Brother Rheumatic fever Surgical History (Updated 03/18/25 @ 15:42 by Lianne Rosas) Hx of toe surgery Hx of foot surgery S/P trigger finger release S/P laparoscopic cholecystectomy History of left heart catheterization (06/12/19) Social History Smoking Status: Never smoker Audit: Pertinent Findings Pertinent Findings EKG Perinent findings: 06/11/2019. Normal sinus rhythm 61 bpm. Voltage criteria for LVH. Echo (EF%) pertinent findings: 06/11/2019. EF 35 to 40%. No comparison study. Heart catheterization pertinent findings: 06/12/2019. Conclusions. Normal size wall motion function EF 60%. Consult pertinent findings: Cardiology 07/18/2019. Hypertension continue current medications. Recommendation Anesthesia Recommendation Anesthesia recommendation: OPTIMIZED for anesthesia
[2025-03-24] VITALS (11 sets, daily range): BP systolic 119–164; BP diastolic 70–93; PULSE 54–63; RESP 10–16; TEMP 3–37.4; O2SAT 95–100; BMI 40.9
[2025-03-24] MEDS: Lactated Ringers 1,000 ML 15 ML IV (12:26)
--- NOTE | 2025-03-24 12:35 | PCM.PRE.AN2 ---
ASA Classification* ASA Classification ASA Classification: 2 (HTN, GERD) Assessment & Plan Anesthesia* Anesthesia Assessment Anesthesia Assessment: Discussed sedation and/or anesthesia options, risks, benefits, and alternatives with patient/parents/legal guardian/POA. Questions invited. The patient/parents/legal guardian/POA seems to understand and agrees to proceed with anesthesia plan. Reviewed the physical assessment, medical history, allergy history and patient home medications list prior to surgery/procedure/anesthetic and documented any changes. Performed airway and anesthesia risk assessments. Anesthesia Type Anesthesia Type: General History Source History Obtained from:: Patient Anesthesia Focused Assessment* Temperature: 98.2 F Pulse Rate: 56 Blood Pressure: 141/73 Respiratory Rate: 16 Pulse Ox: 100 Oxygen Delivery Method: Room Air Airway Assessment Mouth opens: >3 cm Mallampati Score: II Teeth Condition: Intact Neck Range of motion (ROM): Full ROM Labs Anesthesia Preop lab: CBC WBC 6.6 K/mm3 (4.4-11.0) 03/19/25 09:03/19/25 RBC 3.92 M/mm3 (4.2-5.4) L 03/19/25 09:03/19/25 Hgb 12.5 g/dL (12.0-15.0) 03/19/25 09:03/19/25 Hct 38.2 % (37-47) 03/19/25 09:03/19/25 Plt Count 325 K/mm3 (150-450) 03/19/25 09:26 03/19/25 CHEMISTRY Potassium 4.1 mmol/L (3.3-5.1) 03/19/25 09:26 03/19/25 Sodium 141 mmol/L (133-145) 03/19/25 09:26 03/19/25 BUN 21 mg/dL (4-19) H 03/19/25 09:03/19/25 Creatinine 0.71 mg/dL (0.70-1.20) 03/19/25 09:03/19/25 Glucose 94 mg/dL (70-99) 03/19/25 09:03/19/25 POC Glucose 102 mg/dL (70-110) 06/12/19 14:16 06/12/19 TSH 1.58 uIU/mL (0.358-3.74) 07/15/20 14:03 07/15/20 COAG Pre-Assessment Diagnosis/Proposed Procedure Planned Operative Procedure(s): RIGHT KNEE ARTHROSCOPY PARTIAL MENISCECTOMY Anesthesia History Anesthesia History - quality assurance specialist: Anesthesia History - quality assurance specialist Hx Hospitalization No 03/18/25 15:31 Any Problems With Anesthesia No 03/18/25 15:31 Cholinesterase deficiency No 03/18/25 15:31 You/Your Family Experience No 03/18/25 15:31 fever (hyperthermia) with Relationship Recent Exposure to Contagious No 03/24/25 12:22 Disease Does patient have nerve No 03/18/25 15:31 stimulator Patient instructed to have device shut off --Does patient have Pacemaker No 03/24/25 12:22 or ICD? When Was Last Pacemaker Check QUESTION #4 FULL TEXT: You/Your Family Experience fever (hyperthermia) with Anesthesia Last Oral Intake Last Oral intake: Last Oral Intake NPO since 08:00 03/24/25 12:22 Meds taken in AM with sips of No 03/24/25 12:22 water? Meds patient instructed to take am of surgery PONV PONV - quality assurance specialist: PONV - quality assurance specialist Female Yes 03/18/25 15:31 HX of Motion Sickness No 03/18/25 15:31 HX of N/V After Surgery No 03/18/25 15:31 Non-Smoker Yes 03/18/25 15:31 Duration of Surgery greater Yes 03/18/25 15:31 than 60 minutes Number of Risk Factors 3 03/18/25 15:31 PONV Score Moderate Risk 03/18/25 15:31 Height & Weight Height & Weight: Anesthesia: Height & Weight Height 5 ft 6 in 03/24/25 12:22 Weight: 115 kg 03/24/25 12:22 Body Mass Index (BMI) 40.9 03/24/25 12:22 Respiratory Assessment Respiratory Assessment - quality assurance specialist: Respiratory Tract Infection Hx - quality assurance specialist Hx Respiratory Tract Infection No 03/18/25 15:31 STOP Sleep Apnea STOP Sleep Apnea - quality assurance specialist: STOP Sleep Apnea - quality assurance specialist Hx Hypertension Yes: CONTROLLED WITH MED 03/18/25 15:31 Hx Sleep Apnea No 03/18/25 15:31 CPAP BIPAP Do you snore loudly (louder Yes 03/18/25 15:31 than talking or can be heard Do you often feel tired/ No 03/18/25 15:31 fatigued/ sleepy during daytime? Has anyone observed you stop No 03/18/25 15:31 breathing during sleep? STOP Results Positive 03/18/25 15:31 QUESTION #5 FULL TEXT : Do you snore loudly (louder than talking or can be heard through closed doors)? Tobacco Use History Tobacco Use History - quality assurance specialist: Tobacco Use History - quality assurance specialist Tobacco Use Smoking Status Never smoker 03/18/25 15:31 Hx Tobacco Use No 03/18/25 15:31 Years Smoking Packs Smoked per Day Smoking Cessation Date was within the last 15 years Hx Smoking Cessation Date Hx Smoking Cessation Counseling Hematologic Medial History Hematologic Hx - quality assurance specialist: Hematologic Medical Hx - palm gatherer Hx of Blood Transfusion No 03/18/25 15:31 Hx of Transfusion in last 3 No 03/18/25 15:31 Months Date of Last Transfusion (if within last 3 months) Ever experience any problems No 03/18/25 15:31 with transfusion(s)? Specify any problems Hx of Preganancy in last 3 No 03/18/25 15:31 Months Nurse Filling Out Transfusion DSCHRIBER 03/18/25 15:31 & Questions: Date: 03/18/25 03/18/25 15:31 Time: 15:32 03/18/25 15:31 Patient unable to answer at this time (ie. 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 History - quality assurance specialist: /Reproductive Hx- quality assurance specialist Hx Now No 03/18/25 15:31 Gestational Age (in weeks): EDC: Hx Hx Para Hx Section SAB No 03/18/25 15:31 Active Medications Active Medications: Current Medications Generic Name Dose Route Start Last Admin Trade Name Freq PRN Reason Stop Dose Admin Cefazolin Sodium 2 gm/ Sodium 110 mls @ 150 mls/hr 03/24/25 13:55 Chloride IV 03/24/25 14:38 INTRAOP ONE Lactated Ringer's 1,000 mls @ 15 mls/hr 03/24/25 12:00 03/24/25 12:26 IV 15 mls/hr .Q48H LETHA Administration PFSH Medical History (Updated 03/18/25 @ 15:42 by Lianne Rosas) Post-menopausal History of steroid therapy Fatty liver High cholesterol Back pain History of pain when walking History of echocardiogram History of stress test Wears glasses Arthritis Gastric reflux Non-smoker History of edema Cardiology follow-up encounter [place] Cardiomyopathy Elevated blood pressure reading without diagnosis of hypertension Home Medications ?Medication ?Instructions ?Recorded ?Last Taken ?Type atorvastatin 20 mg tablet 20 mg PO QHS #90 tabs 08/14/20 06/12/24 Rx carvedilol 3.125 mg tablet 3.125 mg PO BID #180 tabs 08/14/20 06/12/24 Rx qolbozpr-ez-ftrzk 300 mcg-K 60 1 tab PO DAILY 07/05/21 06/12/24 History mcg-lycop 600 mcg-lutein 300 mcg tablet (Centrum Silver Men) omeprazole 20 mg capsule,delayed 20 mg PO DAILY 07/05/21 06/12/24 History release turmeric 400 mg capsule 400 mg PO BID 07/05/21 06/12/24 History lisinopril 10 1 tab PO DAILY #90 tabs 08/10/21 06/12/24 Rx mg-hydrochlorothiazide 12.5 mg tablet aspirin 81 mg capsule 81 mg PO DAILY 06/10/24 03/18/25 History cholecalciferol (vitamin D3) 125 20,000 unit PO DAILY 03/18/25 Unknown History mcg (5,000 unit) tablet (Vitamin D3) Allergy/AdvReac Type Severity Reaction Status Date / Time aspirin AdvReac Other Verified 03/24/25 12:21 Family History Mother Arrhythmia Brother Rheumatic fever Surgical History (Updated 03/18/25 @ 15:42 by Lianne Rosas) Hx of toe surgery Hx of foot surgery S/P trigger finger release S/P laparoscopic cholecystectomy History of left heart catheterization (06/12/19) Social History Smoking Status: Never smoker Review of Systems (Anesthesia) ROS Narrative System reviewed and no additional complaints, except as documented. Physical Exam Const alert, oriented x3 and average body habitus Resp normal respiratory effort, normal air movement and clear to auscultation bilaterally Cardio regular rate, regular rhythm, no murmurs and diaphoretic
--- NOTE | 2025-03-24 13:29 | PCM.HP.BLA ---
History and Physical Date of Admission: 03/24/25 [facility] [address] [place] [address] OFFICE VISIT Date of Service: 03/13/25 MR#: [id number] Acct: [id number] Name: SERENE LANGE Rep #: [id number] : 1955 Provider: Dr. Donell Pacheco DO Age/Sex: 69/F Location: [facility] Status: Signed Intake Vital Signs 01/29/2508:53 Height 5 ft 6 in Intake Visit Reasons: RIGHT KNEE Chief Complaint: MRI Review Accompanied by: Self Is patient in pain?: Yes Pain scale (1-10): 2 Allergies aspirin Adverse Reaction (Verified 03/13/25 09:16) Other Medications ?Medication ?Instructions ?Recorded ?Confirmed ?Type atorvastatin 20 mg tablet 20 mg PO QHS #90 tabs 08/14/20 03/13/25 Rx carvedilol 3.125 mg tablet 3.125 mg PO BID #180 tabs 08/14/20 03/13/25 Rx jwyutkwf-gm-[id number] 300 mcg-K 60 1 tab PO DAILY 07/05/21 03/13/25 History mcg-lycop 600 mcg-lutein 300 mcg tablet (Centrum [facility]) omeprazole 20 mg capsule,delayed 20 mg PO DAILY 07/05/21 03/13/25 History release turmeric 400 mg capsule 400 mg PO BID 07/05/21 03/13/25 History lisinopril 10 1 tab PO DAILY #90 tabs 08/10/21 03/13/25 Rx mg-hydrochlorothiazide 12.5 mg tablet aspirin 81 mg capsule 81 mg PO DAILY 06/10/24 03/13/25 History etodolac 500 mg tablet 500 mg PO BID #40 tabs 02/09/25 03/13/25 Rx Have you fallen in the past year?: Yes [facility] Medical History Wears glasses Arthritis Gastric reflux Non-smoker History of edema Cardiology follow-up encounter [place] Cardiomyopathy Elevated blood pressure reading without diagnosis of hypertension Chest pain Pre-syncope Surgical History S/P trigger finger release S/P laparoscopic cholecystectomy History of left heart catheterization (06/12/19) Family History Mother ArrhythmiaBrother Rheumatic fever Social History Smoking Status: Never smoker HPI RIGHT KNEE Details: This documentation accurately reflects the service provided and the decisions made by me, Dr. Donell Pacheco, DO 03/13/25 0915. Part of today?s visit was documented by Cathleen Gonzáles ATC, acting as scribe. SERENE LANGE is a 69 year old F here today for right knee MRI review. Patient rates her pain a 2/10 today. She states during the MRI something was not working right so they had to put a weight over the knee and it made her very uncomfortable. She states she couldn't even bend the knee when she was finished. She states the knee has been bothering her more since the MRI. She has been doing some stretches on her own that have given her some relief since the MRI. She states the right wrist is doing well and she does have a tender spot around the base of the thumb and if she bumps it it does bother her. She is not currently wearing the brace but does wear it if it gets uncomfortable. Ortho Exam General General: Yes no acute distress and Yes well groomed Neurologic: Yes alert and Yes oriented x3 Psychologic: Yes reasonable and appropriate Right Knee Skin/Wound: Yes CDI, No erythema, No ecchymosis and No swelling Knee ROM: Yes ROM-Extension -20 to 0 and Yes ROM-Flexion 0-140 (115) Examination: No Med jt line tenderness, No Lat jt line tenderness, No Pain with extention, No Andrew's Test, Yes Patiño's, No TTP Pes Anserine and No Illiotibial band tenderness Stability: NML: Anterior Drawer, NML: Posterior Drawer, NML: Valgus 0, NML: Valgus 30, NML: Varus 0 and NML: Varus 30 Patella Translation: 1 Patella Grind: No KNEE: painful crepitation with patellar grind 115 Head: Normocephalic Atraumatic Chest: symmetrical rise, non-labored breathing, no audible wheeze Abdomen: no guarding, non-rigid Left Knee Patella Translation: 1 Supplemental Info 03/10/2025 MRI right knee: Complex tear of the body and posterior horn medial meniscus with horizontal and undersurface component there is a small displaced meniscal flap along the inferior gutter and posterior intercondylar notch abutting the posterior root. Moderate diffuse chondral wear of the patellar apex. Moderate diffuse chondral thinning throughout the medial compartment with a full-thickness chondral defect of the middle third of the medial femoral condyle measuring 6 x 12 mm. Davies's cyst with small chondral bodies 02/16/2025 x-ray right wrist: Nondisplaced extra-articular transverse fracture distal radius 02/02/2025 x-rays on disc from outside facility no report: Questionable nondisplaced transverse fracture distal radius, CMC arthrosis 10/15/2024 lab work: eGFR creatinine within normal limits 10/15/2024 x-ray lumbar spine: There is moderate multilevel degenerative disc disease most significant L5-S1 and L2-L3 as well as multilevel facet arthropathy 08/18/2024 x-ray right knee: Mild spurring noted throughout the knee Coding Level of Care Code Off vis,est,level 3 Diagnoses Complex tear of medial meniscus of right knee as current injury, subsequent encounter S83.231D Encounter type: subsequent encounter Meniscus tear of knee type: complex Laterality: right Primary osteoarthritis of right knee M17.11 Osteoarthritis type: primary Assessment and Plan Assessment and Plan (1) Tear of medial meniscus of knee, current: Status: Acute Qualifiers: Encounter type: subsequent encounter Meniscus tear of knee type: complex Laterality: right Qualified Code(s): S83.231D - Complex tear of medial meniscus, current injury, right knee, subsequent encounter (2) Right knee DJD: Status: Acute Qualifiers: Osteoarthritis type: primary Qualified Code(s): M17.11 - Unilateral primary osteoarthritis, right knee Plan Reviewed the right knee MRI that she had done previously and explained her arthritis is more significant than what shows up on the x-rays and she does have cartilage wear on the medial aspect of the knee as well as a meniscus tear. Her options would be: do nothing, arthroscopy surgery to clean out the knee and cartilage, continue with steroid injections, viscosupplementation injections, bracing, physical therapy and if she continues to have issues then TKA. Explained it is hard to differentiate the pain between the meniscus tear and the arthritis she does have in the knee. Spoke to patient about the pros, cons, risks and benefits of a knee arthroscope surgical procedure. Recommend she use crutches or a walker following surgery in case she is not steady on her feet. She should avoid any Ibuprofen, Aleve or any NSAIDs 7 days prior to surgery. Patient would like to proceed with surgery. We will need a medical clearance prior to proceeding with surgery. Aim for surgery for March 24, 2025. Follow up for surgery once on the surgery schedule or sooner if pain, swelling, numbness or associated symptoms, or concerns develop. All questions answered. Patient in agreement of plan. I have examined the patient and the H&P has been reviewed. There are no clinical changes since date of exam.
[2025-03-24] MEDS: Cefazolin 2 GM in 0.9% Normal Saline (100mL Bag) 100 ML IV ×2 (13:56→16:48)
[2025-03-24] MEDS: Epinephrine (1 mg/ml) 1 MG/ML VIAL (14:07)
[2025-03-24] MEDS: Lidocaine 1% /Epi 1:100 (50ml) 50 ML VIAL (14:08)
[2025-03-24] MEDS: Bupivacaine Mpf 0.5% 30 ML VIAL (14:30)
[2025-03-24] MEDS: MethylPREDNISolone Acetate 40 MG/ML Vial (14:30)
--- NOTE | 2025-03-24 14:34 | OP.PCM_ITS ---
Operative Report (Standard) Operative Information Date of Procedure: 03/24/25 Pre-Operative Diagnosis: Right knee DJD medial meniscus tear Post-Operative Diagnosis: Same plus lateral meniscus tear Surgery/Procedure Performed: Right knee arthroscopic partial medial meniscectomy partial lateral meniscectomy chondroplasty medial femoral condyle small products ii assembler: Yes Franchise Specialist: Greg Jin Tasks completed by nurse first aid: Opening & closing Type of Anesthesia: General RN Documented Start/Stop Times: Operation Date: 03/24/25 13:15 Case Time Into Pre-Op 03/24/25 11:52 Out of Pre-Op 03/24/25 13:40 Anesthesia Start 03/24/25 13:44 Into Room 03/24/25 13:44 Procedure Start 03/24/25 14:07 Procedure Start Time: 14:07 Procedure Stop Time: 14:33 Select all DRAINS/GRAFTS/IMPLANTS that apply: None Estimated Blood Loss: 5 Specimen collected: No Description of surgery: Preop diagnosis: Right knee complex tear medial meniscus DJD Postoperative diagnosis: Right knee complex tear meniscal body and root peripheral radial tearing body lateral meniscus 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 the patient did wish to proceed with an elective arthroscopic surgery to attempt to alleviate the symptoms. Risk benefits and alternatives of the procedure were reviewed including risk of bleeding infection nerve artery tissue damage need for further surgery continued pain and expected postoperative course. Procedure: The patient was met in the preoperative holding area. The operative extremity was identified by both patient and physician and family and marked. Patient was brought back to the operating room on a wheeled cart and transferred to the operating table in the supine position. Anesthesia was started. A well- padded tourniquet was placed on the operative extremity. A lower extremity leg bucio was secured to the operative extremity. The contralateral extremity was well-padded and the end of the bed was flexed to 90 degrees. The patient was prepped and draped in the usual sterile fashion. A timeout was called to ensure the proper patient, procedure, and extremity were being contemplated. 0.5% Marcaine with epinephrine was injected into the planned incisional areas under the skin only. An Esmarch was used to exsanguinate the extremity and the tourniquet was inflated. An 11 blade scalpel was used to make a stab incision in the anterior lateral portal. The arthroscope was inserted into the intercondylar notch and inflow and outflow tubes were attached. Arthroscopic visualization began. She did have significant thickened tissue in the intercondylar notch and I did have to place the medial portal in full extension in order to insert a shaver to perform debridement of synovial tissue to enter the medial compartment once entering the medial compartment I did need to make a another medial portal that was more appropriate for meniscal work. The medial compartment was entered. An 18-gauge spinal needle was used to establish the placement for anterior medial portal. An 11 blade scalpel was used to make a stab incision. Blunt probe was inserted followed by a meniscal probe. There was a complex tear with a radial flap of the body and posterior horn of the medial meniscus with the use of arthroscopic biting instruments shaver and ArthroCare wand partial medial meniscectomy was performed the ACL was found to be intact. The lateral compartment was entered there was radial tearing of the free edge of the body of the lateral meniscus with the use of a shaver partial lateral meniscectomy was performed the cartilage in the lateral compartment was well relatively preserved however the medial compartment had areas of grade 3 diffuse cartilage wear and areas of small areas of grade 4 The arthroscope was switched to the medial portal to complete the procedure. The medial and lateral gutters were inspected and were free of loose bodies. The patellofemoral joint was inspected and had areas of grade 3-4 cartilage wear of the patella as well as the trochlea. There was good patellar tracking. The knee was thoroughly irrigated and drained. An intra-articular injection with 5 cc 0.5% Marcaine plain and 40 mg of Depo-Medrol was injected intra-articularly. The arthroscope was removed the portals were closed with 3-0 nylon arthroscopic stitches. Followed by Xeroform 4 x 4's ABDs web roll and an Tonny wrap. The tourniquet was let down and the drapes were removed. All counts were correct. The patient was brought back to the PACU in stable condition. Surgical Findings: Medial meniscus tear DJD Complications Complications: No
--- NOTE | 2025-03-24 14:38 | EX.PCM.DISCH ---
Discharge Instructions Diet Discharge Diet: No restrictions Dressing / Incision Call your doctor if you observe: Shortness of breath and Chest pain Additional Dressing/Incision Instructions:: Ice and elevate next 72 hours .keep dressing on clean and dry for 48 hours then may remove begin showering daily but do not submerge in tub or pool. After shower may apply Band-Aids . Encourage knee range of motion weightbearing as tolerated, use crutches until confident in knee then may discontinue. No strenuous activity. When not ambulating keep iced and elevated next 72 hours. Do not mix pain medication with recreational drugs or alcohol only take as prescribed can be addictive and abusive, call with any questions or concerns. Follow Up Care Please Follow Up With: Donell Pacheco DO When: 2 weeks Test Results: Test results from this visit will be discussed in further detail at your follow-up appointment, if applicable. Discharge Plan Admission Primary Reason for Your Visit: Right knee arthroscopy Attending Provider: Donell Pacheco Primary Care Provider: Burt Talavera Instructions Print Language: Moroccan Discharge Orders/Prescriptions Prescriptions: New oxycodone 5 mg tablet 5 - 10 mg PO Q4H PRN PRN (Reason: pain) 7 Days Qty: 30 0RF No Action Centrum Silver Men 300-600-300 mcg tablet 1 tab PO DAILY turmeric 400 mg capsule 400 mg PO BID omeprazole 20 mg capsule,delayed release(DR/EC) 20 mg PO DAILY aspirin 81 mg capsule 81 mg PO DAILY cholecalciferol (vitamin D3) [Vitamin D3] 125 mcg (5,000 unit) tablet 20,000 unit PO DAILY atorvastatin 20 mg tablet 20 mg PO QHS Qty: 90 3RF carvedilol 3.125 mg tablet 3.125 mg PO BID Qty: 180 3RF lisinopril-hydrochlorothiazide 10-12.5 mg tablet 1 tab PO DAILY Qty: 90 3RF Referrals / Follow Up: Burt Talavera MD [Primary Care Provider] - Disposition Disposition (needs filled in before D/C Order can be placed): Home, Self Care
--- NOTE | 2025-03-24 14:57 | PCM.POST.ANE ---
Anesthesia: Postop Eval I Current Vital Signs Temperature: 37.4 F Pulse Rate: 58 Blood Pressure: 119/93 Respiratory Rate: 16 Pulse Ox: 99 Oxygen Flow Rate (L/min): 8 (simple face mask ) Assessment Airway patent: Yes Spontaneous unlabored respirations: Yes Mental status: Asleep nausea: No Vomiting: No Anesthesia Complication: No Fluid Hydration Crystalloid volume administer (ml): 400 Total IV fluid infused: 400 Progress Note Anesthesia document: Postop Eval 1 completed: Yes
[2025-03-24] MEDS: HYDROcodone Bitartrate/Apap 5/325 Tablet PO (16:43)
--- NOTE | 2025-03-24 18:36 | POSTOPAN2_ITS ---
Anesthesia Postop Eval I Sum Postop Eval Completion status Anesthesia document: Postop Eval 1 completed: Yes Anesthesia Postop Eval I Summary Anesthesia Postop Eval I Summary: Anesthesia Postop Eval I: Assessment Summary Airway patent Yes 03/24/25 14:59 ASSISTANT INFANT TEACHER.BPEY Spontaneous unlabored Yes 03/24/25 14:59 ASSISTANT INFANT TEACHER.BPEY respirations Mental status Asleep 03/24/25 14:59 ASSISTANT INFANT TEACHER.BPEY nausea No 03/24/25 14:59 ASSISTANT INFANT TEACHER.BPEY Vomiting No 03/24/25 14:59 ASSISTANT INFANT TEACHER.BPEY Anesthesia Postop Eval I: Fluid Summary Crystalloid volume administer 400 03/24/25 14:59 ASSISTANT INFANT TEACHER.BPEY (ml) Colloids volume administered ( ml) Blood Product volume administered (ml) Total IV fluid infused 400 03/24/25 14:59 ASSISTANT INFANT TEACHER.BPEY Anesthesia Postop Eval I: Summary Notes Anesthesia Complication No 03/24/25 14:59 ASSISTANT INFANT TEACHER.BPEY Anesthesia Complication Comment: Post-operative progress note Anesthesia: Postop Eval II Evaluation Mental status: Awake Pain Level: 0 nausea: No Vomiting: No Complications Anesthesia Complication: No
--- NOTE | 2025-03-24 18:36 | PCM.POSTANE2 ---
Anesthesia Postop Eval I Sum Postop Eval Completion status Anesthesia document: Postop Eval 1 completed: Yes Anesthesia Postop Eval I Summary Anesthesia Postop Eval I Summary: Anesthesia Postop Eval I: Assessment Summary Airway patent Yes 03/24/25 14:59 GAS WELL [email or web address].[email or web address] Spontaneous unlabored Yes 03/24/25 14:59 GAS WELL PUMPER.BPEY respirations Mental status Asleep 03/24/25 14:59 GAS WELL PUMPER.BPEY nausea No 03/24/25 14:59 GAS WELL PUMPER.BPEY Vomiting No 03/24/25 14:59 GAS WELL PUMPER.BPEY Anesthesia Postop Eval I: Fluid Summary Crystalloid volume administer 400 03/24/25 14:59 GAS WELL PUMPER.BPEY (ml) Colloids volume administered ( ml) Blood Product volume administered (ml) Total IV fluid infused 400 03/24/25 14:59 GAS WELL PUMPER.BPEY Anesthesia Postop Eval I: Summary Notes Anesthesia Complication No 03/24/25 14:59 GAS WELL PUMPER.BPEY Anesthesia Complication Comment: Post-operative progress note Anesthesia: Postop Eval II Evaluation Mental status: Awake Pain Level: 0 nausea: No Vomiting: No Complications Anesthesia Complication: No
== END 2025-03-24 17:54 | disposition home or self-care (01) ==
LOC: SDC 11:46 → AC 11:47
PROVIDERS: PCP Family Medicine; Referring Provider Orthopaedic Surgery; Visit Provider Orthopaedic Surgery
PROC: (CPT 29870; principal; 2025-03-24 12:55)
DX: S83.231A Complex tear of medial meniscus, current injury, right knee, initial encounter (principal); S83.271A Complex tear of lateral meniscus, current injury, right knee, initial encounter; X58.XXXA Exposure to other specified factors, initial encounter; I10 Essential (primary) hypertension; M17.11 Unilateral primary osteoarthritis, right knee; M94.261 Chondromalacia, right knee; E78.00 Pure hypercholesterolemia, unspecified; Z79.82 Long term (current) use of aspirin; Z79.899 Other long term (current) drug therapy
CPT/HCPCS: 29880; 01400; J2405

== ENCOUNTER → 2025-04-23 | Outpatient (CLI) | payer MEDICARE, OTHER, SELFPAY ==
[2025-04-23 13:07] LABS: AST(SGOT) 24 U/L (<=31); Alanine Aminotransfer ALT/SGPT 16 U/L (<=34); Albumin, Serum 4.2 g/dL (3.4-4.8); Alkaline Phosphatase 97 U/L (35-104); Anion Gap 13 (5-15); BUN 21 mg/dL (4-19); BUN/Creat Ratio 28.2 RATIO (10-20); Calcium,Total 9.8 mg/dL (7.6-11.0); Carbon Dioxide 23.7 mmol/L (21.0-32.0); Chloride 104 mmol/L (98-108); Cholesterol 152 mg/dL (<=200); Globulin 3.0 g/dL (2.2-4.2); Glucose 98 mg/dL (70-99); Low Density Lipoprotein Calc. 70 mg/dL; Potassium 4.1 mmol/L (3.3-5.1); Triglycerides 88 mg/dL; Very Low Density Lipoprotein 18 mg/dL (5-40); cholesterol:hdl ratio screen 2.37
== END | disposition home or self-care (01) ==
LOC: MFPLAB 10:40
PROVIDERS: PCP Family Medicine; Referring Provider Family Medicine; Visit Provider Family Medicine
DX: I10 Essential (primary) hypertension (principal)
CPT/HCPCS: 36415; 80053; 80061